=== PATIENT | male | born 1970 | race Caucasian/White ===

== ENCOUNTER 2022-02-10 10:48 | Outpatient (REF) | payer OTHER, SELFPAY ==
[2022-02-10 10:53] LABS: MANUAL DIFF FLAG NO
[2022-02-10 11:16] LABS: Basophils Absolute Auto 0.1 X10*3/uL (0.0-0.2); Basophils Percent Auto 0.6 % (0-2); Eosinophils Absolute Auto 0.4 X10*3/uL (0.0-0.4); Eosinophils Percent Auto 3.8 % (0-4); Hematocrit 43.9 % (42.0-52.0); Hemoglobin 14.1 g/dl (14.0-18.0); Imm Gran Abs Auto 0.02 X10*3/uL (0.00-0.03); Imm Gran Pct Auto 0.2 % (0.0-0.4); Lymphocytes Absolute Auto 4.3 X10*3/uL (1.2-4.9); Lymphocytes Percent Auto 45.4 % (20-40); Mean Corpuscular HGB Conc 32.1 g/dl (31.0-36.0); Mean Corpuscular Hemoglobin 29.7 pg (27.0-33.0); Mean Corpuscular Volume 92.4 fL (80.0-98.0); Mean Platelet Volume 10.2 fL (9.4-12.4); Monocytes Absolute Auto 0.8 X10*3/uL (0.1-1.2); Monocytes Percent Auto 7.9 % (2-11); Neutrophils Percent Auto 42.1 % (45-73); Platelet Count 247 X10*3/uL (160-400); Red Blood Count 4.75 X10*6/uL (4.60-5.80); White Blood Count 9.6 X10*3/uL (4.8-10.8)
[2022-02-10 11:23] LABS: Appearance Urine CLEAR; Color Urine YELLOW; Glucose Urine UA NEG (NEG); Leukocyte Esterase Urine NEG (NEG); Nitrite Urine NEG (NEG); PH 5.5 (5.0-8.0); Specific Gravity - Urine >= 1.030 (1.005-1.025); Urine Blood NEG (NEG); Urine Ketones 5 MG/DL (NEG); Urine Protein TRACE MG/DL (NEG-TRACE)
[2022-02-10 11:25] LABS: Estimated Average Glucose 169 mg/dL; Hemoglobin A1c % 7.5 %
[2022-02-10 11:29] LABS: Alanine Aminotransferase 56 U/L (0-40); Albumin Level 4.1 g/dL (3.5-5.0); Alkaline Phosphatase 110 U/L (39-117); Anion Gap 12 (12-20); Aspartate Amino Transferase 39 U/L (5-37); Bilirubin Total 0.3 mg/dL (0.0-1.0); Blood Urea Nitrogen 15 mg/dL (9-16); Carbon Dioxide 25 mmol/L (22-29); Chloride 107 mmol/L (96-108); Cholesterol 197 mg/dL; Estimated Glomerular Filt Rate > 60; Glucose Random 125 mg/dL (60-115); HDL Cholesterol 39 mg/dL; LDL Cholesterol Calculated 130 mg/dl; Potassium 4.6 mmol/L (3.3-5.1); Sodium 139 mmol/L (135-145); Total Protein 7.1 g/dL (6.5-8.0); Triglycerides 141 mg/dL
[2022-02-10 11:48] LABS: PSA,Total (Free>4and<10) 0.46 ng/mL (0.00-4.00)
[2022-02-10 11:51] LABS: Creatinine Urine 274.93 mg/dL; Microalbum/Creatinine Ratio Ur 10.9 ug/mg cr
== END 2022-02-10 10:49 | disposition home or self-care (01) ==
LOC: HO.LNP 10:48
PROVIDERS: Visit Provider Internal Medicine
DX: Z00.00 Encounter for general adult medical examination without abnormal findings (principal); Z12.5 Encounter for screening for malignant neoplasm of prostate; E11.9 Type 2 diabetes mellitus without complications; K50.10 Crohn's disease of large intestine without complications; E78.00 Pure hypercholesterolemia, unspecified
CPT/HCPCS: 80053; 80061; 81003; 82043; 83036; 84153; 85025

== ENCOUNTER 2022-04-21 10:57 | Outpatient (REF) | payer OTHER, SELFPAY ==
[2022-04-21 11:08] LABS: Basophils Absolute Auto 0.1 X10*3/uL (0.0-0.2); Basophils Percent Auto 0.5 % (0-2); Eosinophils Absolute Auto 0.2 X10*3/uL (0.0-0.4); Eosinophils Percent Auto 1.7 % (0-4); Hematocrit 42.6 % (42.0-52.0); Hemoglobin 13.4 g/dl (14.0-18.0); Imm Gran Abs Auto 0.03 X10*3/uL (0.00-0.03); Imm Gran Pct Auto 0.2 % (0.0-0.4); Lymphocytes Absolute Auto 6.5 X10*3/uL (1.2-4.9); MANUAL DIFF FLAG SCAN; Mean Corpuscular HGB Conc 31.5 g/dl (31.0-36.0); Mean Corpuscular Hemoglobin 28.9 pg (27.0-33.0); Mean Platelet Volume 10.4 fL (9.4-12.4); Monocytes Percent Auto 8.1 % (2-11); Neutrophils Absolute Auto 4.3 x10*3/uL (2.0-8.3); Neutrophils Percent Auto 35.5 % (45-73); Platelet Count 234 X10*3/uL (160-400); Red Blood Count 4.63 X10*6/uL (4.60-5.80); Red Cell Distribution Width 13.7 % (11.0-16.0); SCAN SMEAR FLAG 1; White Blood Count 12.1 X10*3/uL (4.8-10.8)
[2022-04-21 12:20] LABS: SLIDE REVIEW VERIFIED
== END 2022-04-21 10:58 | disposition home or self-care (01) ==
LOC: HO.LNP 10:57
PROVIDERS: PCP Internal Medicine; Visit Provider Internal Medicine
DX: D72.820 Lymphocytosis (symptomatic) (principal)
CPT/HCPCS: 85025

== ENCOUNTER 2022-09-15 11:04 | Outpatient (REF) | payer OTHER, SELFPAY ==
[2022-09-15 11:52] LABS: Estimated Average Glucose 128 mg/dL; Hemoglobin A1C 151.4008 umol/L; Hemoglobin A1c % 6.1 %
[2022-09-15 11:57] LABS: Alanine Aminotransferase 38 U/L (0-40); Albumin Level 4.2 g/dL (3.5-5.0); Alkaline Phosphatase 97 U/L (39-117); Aspartate Amino Transferase 29 U/L (5-37); Bilirubin Direct 0.2 mg/dL (0.0-0.5); Bilirubin Total 0.4 mg/dL (0.0-1.0); Cholesterol 193 mg/dL; Glucose Fasting 114 mg/dL (60-99); HDL Cholesterol 42 mg/dL; LDL Cholesterol Calculated 136 mg/dl; Total Protein 7.1 g/dL (6.5-8.0); Triglycerides 77 mg/dL
[2022-09-15 12:52] LABS: Reflex LDLD? No
== END 2022-09-15 11:05 | disposition home or self-care (01) ==
LOC: HO.LNP 11:04
PROVIDERS: Visit Provider Internal Medicine
DX: E11.9 Type 2 diabetes mellitus without complications (principal); E78.00 Pure hypercholesterolemia, unspecified
CPT/HCPCS: 80061; 80076; 82947; 83036

== ENCOUNTER 2023-02-17 11:38 | Outpatient (REF) | payer OTHER, SELFPAY ==
[2023-02-17 12:03] LABS: Basophils Absolute Auto 0.1 X10*3/uL (0.0-0.2); Basophils Percent Auto 0.6 % (0-2); Eosinophils Absolute Auto 0.3 X10*3/uL (0.0-0.4); Eosinophils Percent Auto 2.1 % (0-4); Hematocrit 45.7 % (42.0-52.0); Hemoglobin 15.2 g/dl (14.0-18.0); Imm Gran Abs Auto 0.05 X10*3/uL (0.00-0.03); Imm Gran Pct Auto 0.4 % (0.0-0.4); Lymphocytes Absolute Auto 5.8 X10*3/uL (1.2-4.9); Lymphocytes Percent Auto 44.5 % (20-40); MANUAL DIFF FLAG SCAN; Mean Corpuscular HGB Conc 33.3 g/dl (31.0-36.0); Mean Corpuscular Hemoglobin 29.7 pg (27.0-33.0); Mean Corpuscular Volume 89.4 fL (80.0-98.0); Mean Platelet Volume 10.5 fL (9.4-12.4); Monocytes Absolute Auto 0.9 X10*3/uL (0.1-1.2); Monocytes Percent Auto 6.8 % (2-11); Neutrophils Absolute Auto 5.9 x10*3/uL (2.0-8.3); Neutrophils Percent Auto 45.6 % (45-73); Platelet Count 231 X10*3/uL (160-400); Red Blood Count 5.11 X10*6/uL (4.60-5.80); Red Cell Distribution Width 12.4 % (11.0-16.0); SCAN SMEAR FLAG 1
[2023-02-17 12:14] LABS: Estimated Average Glucose 189 mg/dL; Hemoglobin A1c % 8.2 %
[2023-02-17 12:20] LABS: Appearance Urine Clear; Color Urine Yellow; Glucose Urine UA Negative (Negative); Leukocyte Esterase Urine Negative (Negative); Nitrite Urine Negative (Negative); PH 5.5 (5.0-9.0); Specific Gravity - Urine >= 1.030 (1.005-1.025); UMIC TRIGGER UACC YES; Urine Blood Negative (Negative); Urine Ketones Negative (Negative); Urine Protein 30 (1+) mg/dL (Neg-Trace)
[2023-02-17 12:24] LABS: Bacteria Urine None Seen (None Seen); Hyaline Casts Urine 0-2 /LPF (0-2); RBC Urine 0-2 /HPF (0-2); Squamous Epithelial Cell Urine 0-2 /HPF (0-2); WBC Urine 0-5 /HPF (0-5)
[2023-02-17 12:35] LABS: Alanine Aminotransferase 34 U/L (0-40); Albumin Level 4.3 g/dL (3.5-5.0); Alkaline Phosphatase 115 U/L (39-117); Anion Gap 12 (12-20); Aspartate Amino Transferase 20 U/L (5-37); Bilirubin Total 0.5 mg/dL (0.0-1.0); Blood Urea Nitrogen 17 mg/dL (9-16); Calcium 9.3 mg/dL (8.4-10.2); Carbon Dioxide 28 mmol/L (22-29); Chloride 102 mmol/L (96-108); Cholesterol 138 mg/dL; Creatinine Urine 247.64 mg/dL; Estimated Glomerular Filt Rate > 60; Glucose Random 171 mg/dL (60-115); HDL Cholesterol 44 mg/dL; LDL Cholesterol Calculated 80 mg/dl; Microalbum/Creatinine Ratio Ur 19.3 ug/mg cr; Potassium 4.1 mmol/L (3.3-5.1); Sodium 138 mmol/L (135-145); Total Protein 7.1 g/dL (6.5-8.0); Triglycerides 71 mg/dL
[2023-02-17 12:42] LABS: SLIDE REVIEW VERIFIED
== END 2023-02-17 11:39 | disposition home or self-care (01) ==
LOC: HO.LNP 11:38
PROVIDERS: Visit Provider Internal Medicine
DX: Z00.00 Encounter for general adult medical examination without abnormal findings (principal); E11.9 Type 2 diabetes mellitus without complications; E78.00 Pure hypercholesterolemia, unspecified; D72.820 Lymphocytosis (symptomatic)
CPT/HCPCS: 80053; 80061; 81001; 81003; 82043; 83036; 85025

== ENCOUNTER 2023-02-24 15:27 | Outpatient (REF) | payer OTHER, SELFPAY ==
[2023-02-24 16:44] LABS: PSA,Total (Free>4and<10) 0.47 ng/mL (0.00-4.00)
== END 2023-02-24 15:28 | disposition home or self-care (01) ==
LOC: HO.LNP 15:27
PROVIDERS: Visit Provider Internal Medicine
DX: Z12.5 Encounter for screening for malignant neoplasm of prostate (principal)
CPT/HCPCS: 84153

== ENCOUNTER 2024-02-23 10:49 | Outpatient (REF) | payer OTHER, SELFPAY ==
[2024-02-23 10:55] LABS: MANUAL DIFF FLAG NO
[2024-02-23 12:06] LABS: Basophils Absolute Auto 0.1 X10*3/uL (0.0-0.2); Basophils Percent Auto 0.9 % (0-2); Eosinophils Absolute Auto 0.3 X10*3/uL (0.0-0.4); Hematocrit 45.5 % (42.0-52.0); Hemoglobin 15.2 g/dl (14.0-18.0); Imm Gran Abs Auto 0.02 X10*3/uL (0.00-0.03); Imm Gran Pct Auto 0.2 % (0.0-0.4); Lymphocytes Absolute Auto 4.4 X10*3/uL (1.2-4.9); Lymphocytes Percent Auto 51.9 % (20-40); Mean Corpuscular HGB Conc 33.4 g/dl (31.0-36.0); Mean Corpuscular Volume 89.9 fL (80.0-98.0); Monocytes Absolute Auto 0.8 X10*3/uL (0.1-1.2); Monocytes Percent Auto 9.5 % (2-11); Neutrophils Absolute Auto 2.9 x10*3/uL (2.0-8.3); Neutrophils Percent Auto 33.5 % (45-73); Platelet Count 227 X10*3/uL (160-400); Red Blood Count 5.06 X10*6/uL (4.60-5.80); Red Cell Distribution Width 13.2 % (11.0-16.0); White Blood Count 8.5 X10*3/uL (4.8-10.8)
[2024-02-23 12:08] LABS: Appearance Urine Clear; Color Urine Dark Yellow; Glucose Urine UA Negative (Negative); Leukocyte Esterase Urine Negative (Negative); Nitrite Urine Negative (Negative); PH 5.5 (5.0-9.0); Specific Gravity - Urine >= 1.030 (1.005-1.025); Urine Blood Negative (Negative); Urine Ketones Trace mg/dL (Negative); Urine Protein Trace mg/dL (Neg-Trace)
[2024-02-23 12:12] LABS: Bacteria Urine None Seen (None Seen); Hyaline Casts Urine 0-2 /LPF (0-2); RBC Urine 0-2 /HPF (0-2); Squamous Epithelial Cell Urine 0-2 /HPF (0-2); WBC Urine 0-5 /HPF (0-5)
[2024-02-23 12:26] LABS: Estimated Average Glucose 177 mg/dL; Hemoglobin A1c % 7.8 % (<6.0)
[2024-02-23 12:37] LABS: Alanine Aminotransferase 53 U/L (0-40); Albumin Level 4.5 g/dL (3.5-5.0); Alkaline Phosphatase 100 U/L (39-117); Anion Gap 15 (12-20); Aspartate Amino Transferase 44 U/L (5-37); Bilirubin Total 0.8 mg/dL (0.0-1.0); Blood Urea Nitrogen 23 mg/dL (9-16); Calcium 9.4 mg/dL (8.4-10.2); Carbon Dioxide 25 mmol/L (22-29); Chloride 103 mmol/L (96-108); Cholesterol 199 mg/dL (<200); Estimated Glomerular Filt Rate > 60; Glucose Fasting 166 mg/dL (60-99); HDL Cholesterol 52 mg/dL (>40); LDL Cholesterol Calculated 131 mg/dL (<100); Potassium 4.1 mmol/L (3.3-5.1); Sodium 139 mmol/L (135-145); Total Protein 7.8 g/dL (6.5-8.0); Triglycerides 83 mg/dL (<150)
[2024-02-23 12:44] LABS: PSA,Total (Free>4and<10) 0.45 ng/mL (0.00-4.00)
[2024-02-23 12:46] LABS: Creatinine Urine 274.14 mg/dL
== END 2024-02-23 10:50 | disposition home or self-care (01) ==
LOC: HO.LNP 10:49
PROVIDERS: Visit Provider Internal Medicine
DX: Z00.00 Encounter for general adult medical examination without abnormal findings (principal); Z12.5 Encounter for screening for malignant neoplasm of prostate; E11.9 Type 2 diabetes mellitus without complications; E78.00 Pure hypercholesterolemia, unspecified; D72.820 Lymphocytosis (symptomatic)
CPT/HCPCS: 80053; 80061; 81001; 82043; 82570; 83036; 84153; 85025

== ENCOUNTER 2025-11-14 07:15 | Outpatient (REF) | payer OTHER, SELFPAY ==
--- OUTSIDE RECORDS SUMMARY | 2024-10-18 04:00 | XMS_ITS ---
Author Organization Ankit Rose MD Address [address] [place] [phone] Care Team Providers Care Educational Program Assistant Name Role Phone Ankit Rose Primary Care Provider Allergies Allergen (clinical drug ingredient) Drug/Non Drug Allergy documented on EMR Reaction Allergy Type Onset Date Status penicillin G Penicillin G Potassium hives Drug Allergy Active metformin Metformin HCl diarrhea Drug Allergy Act yasir Results Component Value Reference Range Notes Hemoglobin A1c Reviewed date:10/18/2024 09:05:51 AM Interpretation: Performing Lab: Notes/Report: Hemoglobin A1c 7.9 Glucose, finger stick Reviewed date:10/18/2024 09:01:26 AM Interpretation: Performing Lab: Notes/Report: Value 190 REASON FOR VISIT 6 month Medications Medication SIG (Take, Route, Frequency, Duration) Notes Start Date End Date Status sulfaSALAzine 500 MG 2 tablet Orally twi ce a day Not-Taking Mounjaro 2.5 MG/0.5ML as directed Subcutaneous Active glipiZIDE 5 MG 1 tablet 30 minutes before breakfast Orally Once a day Active Crestor 20 MG 1 tablet Orally Once a day Active OneTouch Ultra Test 0 as directed In Vit ro dx E11.9 used to test blood sugars 4 times a day for 30 days 09/25/2015 Active Immunizations Vaccine Route Administration Date Status Comme nts Fluarix Quadrivalent - 150 IM Intramuscular 10/18/2024 Adm inistered Vital Signs Blood pressure systolic 118 mm Hg 10/18/20 24 Blood pressure diastolic 66 mm Hg 024 Height 65.5 in 10/18/2024 Weight 198 lbs 10/18/2024 BMI 32.44 kg/m2 10/18/2024 Encounters Encounter Location Date Provider Diagnosis Ankit Rose MD [address] [place], [place] [phone] 10/18/2024 Ankit Rose Type 2 diabetes mellitus without complication E11.9 ; Solar lentigo L81.4 ; Crohns disease of large intestine without complication K50.10 and Encounter for immunization Z23 Assessments Encounter Date Diagnosis (ICD Code) Assessment Notes Treatment Notes Treatment Clinical Notes Section Notes 10/18/2024 Type 2 diabetes mellitus without complication (ICD-10 - E11.9) 10/18/2024 Solar lentigo (ICD-10 - L81.4) 10/18/2024 Crohns disease of large intestine without complication (ICD-10 - K50.10) has been doing well followed by gi. probably the cause of his intermittant arthralgia 10/18/2024 Encounter for immunization (ICD-10 - Z23) Plan Of Treatment Medication Medication Name Sig Start Date Stop Date Notes Mounjaro 2.5 MG/0.5ML as directed Subcutaneous glipiZIDE 5 MG 1 tablet 30 minutes before breakfast Orally Once a day Treatment Notes Assessment Notes Crohns disease of large inte ronna without complication has been doing well followed by gi. probably the cause of his intermittant arthralgia Next Appt Details Provider Name:Ankit Long ier, 11/30/2025 08:30:00 AM, [address], [address], [place], [place], [phone], Progress Notes * HUSSEIN SALMERON IIIDOB:0 1970 (54 yo M)Acc No.[id number]:10/18/2024 Progress Notes Patient: HUSSEIN CONDON III Provider: Maine Rose MD :1970 A ge:54 Y S ex:Male Date:10/18/2024 Address:[address] [place], [place] [phone] Subjective: * Chief Complaints: * 6 month * HPI: S ymptom(s): patient is a 54 yo male here for 6 month follow up visit, has been doing well/ wonders about skin lesion. * ROS: G eneral/Constitutional: Denies C hills. D enies F atigue. D enies F ever. D enies H eadache. E NT: Patient denies d ecreased sense of smell , any loss of taste , sore throat. D enies S ore throat. E ndocrine: Denies D ifficulty sleeping. D enies D izziness.?Denies E xcessive sweating. D enies E xcessive thirst. D enies F requent urination. R espiratory: Denies C ough. D enies S hortness of breath at rest. D enies S hortness of breath with exertion. G astrointestinal: Denies D iarrhea. D enies N ausea. M usculoskeletal: Patient denies m uscle aches. P eripheral Vascular: Patient denies r ed and blue toes. * Medical History: * Surgical History: * Hospitalization/Major Diagno stic Procedure: * Medications: T akingglipiZIDE 5 MG Tablet 1 tablet 30 minutes before breakfast Orally Once a dayMounjaro 2.5 MG/0.5ML Solution Pen-injector as directed Subcutaneous OneTouch Ultra Test 0 Strip as directed In Vitro dx E11.9 used to test blood sugars 4 times a dayCrestor 20 MG Tablet 1 tablet Orally Once a dayTaking glipiZIDE 5 MG Tablet 1 tablet 30 minutes before breakfast Orally Once a dayTaking Mounjaro 2.5 MG/0.5ML Solution Pen-injector as directed Subcutaneous Taking OneTouch Ultra Test 0 Strip as directed In Vitro dx E11.9 used to test blood sugars 4 times a dayTaking Crestor 20 MG Tablet 1 tablet Orally Once a dayNot-Taking/PRNsulfaSALAzine 500 MG Tablet 2 tablet Orally twice a dayMedication List reviewed and reconciled with the patientNot-Taking/PRN sulfaSALAzine 500 MG Tablet 2 tablet Orally twice a dayMedication List reviewed and reconciled with the patient * Allergies: P enicillin G Potassium: hives - Side EffectsMetformin HCl: diarrhea - Side Effectsyes[Allergies Verified] Objective: * Vitals: H t: 65.5, Wt:198, BMI:32.44, BP:118/66. * Examination: G eneral Examination: GENERAL APPEARANCE: a lert, well hydrated, in no distress.? HEAD: n ormocephalic. SKIN: g ood turgor. HEART: n o murmurs, rubs, gallops , regular rate and rhythm. LUNGS: n o wheezes, rales, rhonchi , good air movement , clear to auscultation bilaterally. Assessment: * Assessment: 1. T ype 2 diabetes mellitus without complication - E11.9 (Primary) 2 . S olar lentigo - L81.4 3 . C rohns disease of large intestine without complication - K50.10 4 . E ncounter for immunization - Z23 Plan: * Treatment: Value Reference Range H emoglobin A1c 7.9 Genny Campos 4 09:05:50 AM EST > ?LAB: Glucose, finger stick* Value Reference Range V alue 190 Genny Campos 4 09:01:24 AM EST > 2.?Crohns disease of large intestine without complication? Notes: has been doing well followed by gi. probably the cause of his intermittant arthralgia? * Immunizations: Fluarix Quadrivalent - 150 : 0.5 mL (Dose No:1) (Route: Intramuscular) given by Genny Bonilla on Left Deltoid * Procedure Codes: 8 2947 ASSAY, GLUCOSE, BLOOD QUANT, Modifiers: QW 13317 GLYCATED HEMOGLOBIN TEST, Modifiers: QW 52489 FLU VACCINE NO PRESERV 3 & >00943 IMMUNIZATION ADMIN * * Sign off status: Completed true * Provider: Maine Rose MD Date: 12/19/2023 Generated for Reece krishnamurthy/Emy/Immanuel on: 02:54 PM EST History and Physical Notes * HPI (History of Present Illness) Category Sub-Category Detail Notes Category Not es Symptom(s) patient is a 54 yo male here for 6 month follow up visit, has been doing well/ wonders about skin lesion Examination Category Sub-Category Detail Notes Category Not es General Examination GENERAL APPEARANCE: alert, w ell hydrated, in no distress HEAD: normocephalic HEART: no murmurs, rubs, ga llops , regular rate and rhythm LUNGS: no wheezes, rales, r honchi , good air movement , clear to auscultation bilaterally SKIN: good turgor
--- OUTSIDE RECORDS SUMMARY | 2025-04-27 04:14 | XMS_ITS ---
Author Organization Ankit Rose MD Address [address] [place] [phone] Care Team Providers Care Kilnman Name Role Phone Ankit Rose Primary Care Provider [phone] REASON FOR VISIT ? to Cancel annual appt Encounters Encounter Location Date Provider Diagnosis Ankit Rose MD [address] [facility] [address] [place], [place] [phone] 04/27/2025 Ankit Rose Plan Of Treatment Next Appt Details Provider Name:Ankit pendleton, 11/30/2025 08:30:00 AM, [address], [address], [place], [place], [phone], Progress Notes * HUSSEIN SALMERON IIIDOB:0 1970 (55 yo M)Acc No.[id number]:04/27/2025 Patient: Mesha HUSSEIN MOISE III :1970 A ge:55 Y S ex:Male Address:[address] [place] [address], [phone] * true * Date: Generated for Reece krishnamurthy/Emy/Tashasmitting on: 02:53 PM EST
--- OUTSIDE RECORDS SUMMARY | 2025-11-14 04:30 | XMS_ITS ---
Author Organization Ankit Rose MD Address [address] [place] [phone] Care Team Providers Care Trend Investigator Name Role Phone Ankit Rose Primary Care Provider [phone] REASON FOR VISIT yearly fasting labs Encounters Encounter Location Date Provider Diagnosis Ankit Rose MD [address] [place] [phone] 11/14/2025 Ankit Rose Blood tests for rout ine general physical examination Z00.00 ; Type 2 diabetes mellitus without complication E11.9 ; Pure hypercholesterolemia E78.00 and Lymphocytosis D72.820 Assessments Encounter Date Diagnosis (ICD Code) Assessment Notes Treatment Notes Treatment Clinical Notes Section Notes 11/14/2025 Blood tests for rout ine general physical examination (ICD-10 - Z00.00) 11/14/2025 Type 2 diabetes davina itus without complication (ICD-10 - E11.9) 11/14/2025 Pure hypercholesterolemia (ICD-10 - E78.00) 11/14/2025 Lymphocytosis (ICD-1 0 - D72.820) Plan Of Treatment Pending Test Test Name Order Date Complete Blood Count Auto Diff Comprehensive Morgan. Panel Fast Lipid Panel 11/14/2025 PSA,Total (Free>4and<10) 11/14/2025 Microalbumin, Random 11/14/2025 Hemoglobin A1c 11/14/2025 UA ClnCatch+Micro w/rflx Cult 11/14/2025 Next Appt Details Provider Name:Ankit pendleton, 11/30/2025 08:30:00 AM, [address] [facility], [address], [place], [phone], Progress Notes * DORITADERICBROCK REYESHUSSEINDOB:0 1970 (55 yo M)Acc No.[id number]:11/14/2025 Progress Note Patient: HUSSEIN CONDON III Provider: Maine Rose MD :1970 A ge:55 Y S ex:Male Date:11/14/2025 Address:[address] [place] [address] Subjective: * Chief Complaints: * 1 . Yearly fasting labs. * Medical History: Objective: * Vitals: Assessment: * Assessment: 1. B lood tests for routine general physical examination - Z00.00 (Primary) 2 .?Type 2 diabetes mellitus without complication - E11.9 3 . P ure hypercholesterolemia - E78.00 4 . L ymphocytosis - D72.820 Plan: * Treatment: 2. T ype 2 diabetes mellitus without complication L AB: Complete Blood Count Auto Diff L AB: Comprehensive Morgan. Panel Fast L AB: Lipid Panel L AB: PSA,Total (Free>4and<10) L AB: Microalbumin, Random L AB: Hemoglobin A1c L AB: UA ClnCatch+Micro w/rflx Cult 3. P ure hypercholesterolemia L AB: Complete Blood Count Auto Diff L AB: Comprehensive Morgan. Panel Fast L AB: Lipid Panel L AB: PSA,Total (Free>4and<10) L AB: Microalbumin, Random L AB: Hemoglobin A1c L AB: UA ClnCatch+Micro w/rflx Cult 4. L ymphocytosis L AB: Complete Blood Count Auto Diff L AB: Comprehensive Morgan. Panel Fast L AB: Lipid Panel L AB: PSA,Total (Free>4and<10) L AB: Microalbumin, Random L AB: Hemoglobin A1c L AB: UA ClnCatch+Micro w/rflx Cult * Procedure Codes: 3 6415 VENIPUNCT, ROUTINE* * * The named appointment provid er may or may not be the originator of this progress note, and it is not deemed complete until electronically signed by the appointment provider. Sign off status: Pending * Provider: Maine Rose MD Date: Generated for Reece krishnamurthy/Emy/Karelyitting on: 02:54 PM EST
[2025-11-14 11:01] LABS: MANUAL DIFF FLAG NO
[2025-11-14 11:13] LABS: Hematocrit 45.4 % (42.0-52.0); Hemoglobin 14.8 g/dl (14.0-18.0); Imm Gran Abs Auto 0.03 X10*3/uL (0.00-0.03); Imm Gran Pct Auto 0.3 % (0.0-0.4); Lymphocytes Absolute Auto 3.1 X10*3/uL (1.2-4.9); Mean Corpuscular HGB Conc 32.6 g/dl (31.0-36.0); Mean Corpuscular Hemoglobin 29.5 pg (27.0-33.0); Mean Corpuscular Volume 90.4 fL (80.0-98.0); NRBC Abs Auto 0.000 X10*3/uL (0.0-0.012); NRBC Pct Auto 0.0 /100WBC (0.0-0.2); Platelet Count 224 X10*3/uL (160-400); Red Blood Count 5.02 X10*6/uL (4.60-5.80); White Blood Count 9.7 X10*3/uL (4.8-10.8)
[2025-11-14 11:35] LABS: Appearance Urine Clear; Glucose Urine UA Negative (Negative); PH 5.0 (5.0-9.0); Specific Gravity - Urine >= 1.030 (1.005-1.025)
[2025-11-14 11:51] LABS: Microalbum/Creatinine Ratio Ur 9.4 ug/mg cr (<30)
[2025-11-14 12:09] LABS: PSA,Total (Free>4and<10) 0.58 ng/mL (0.00-4.00)
[2025-11-14 12:17] LABS: Alanine Aminotransferase 43 U/L (0-40); Albumin Level 4.5 g/dL (3.5-5.0); Alkaline Phosphatase 101 U/L (39-117); Anion Gap 12 (12-20); Aspartate Amino Transferase 41 U/L (5-37); Blood Urea Nitrogen 16 mg/dL (9-16); Calcium 9.3 mg/dL (8.4-10.2); Carbon Dioxide 26 mmol/L (22-29); Chloride 106 mmol/L (96-108); Cholesterol 165 mg/dL (<200); Estimated Glomerular Filt Rate > 60; HDL Cholesterol 43 mg/dL (>40); Potassium 4.1 mmol/L (3.3-5.1); Sodium 140 mmol/L (135-145); Total Protein 7.5 g/dL (6.5-8.0); Triglycerides 144 mg/dL (<150)
--- OUTSIDE RECORDS SUMMARY | 2025-11-14 14:53 | XMS_ITS | Encounter Summary ---
Author Organization [facility] Address [address] [place] [phone] Phone Care Team Providers Care Assistant Women'S Rowing Coach Name Role Phone Ankit Rose MD Primary Care Provider Reza Ye MD Unavailable [phone] Encounter Details Date Type Department Care Team (Late Contact Info) Description 07/27/2017 Telephone [facility]rology [facility] [address] [place] [address] Joe Sears Social History Tobacco Use Types Packs/Day Years Used Date Smoking Tobacco: Never Sex and Gender Information Value Date Recorded Sex Assigned at Male 10/22/2021 6:08 PM EST Legal Sex Male 1:08 PM EST Gender Identity Male 10/22/2021 6:08 PM EST Sexual Orientation Straight 10/22/2021 6: 08 PM EST documented as of this encounter Plan of Treatment Upcoming Encounters Date Type Department Care Team (Late Contact Info) Description 12/28/2025 2:40 PM EST Office Visit [facility] Endocrine Diabetes Clinic [address] [place] [address] Kristin Hernández MD [address] [place] [address] [email or web address] 02/23/2026 Procedure Pass [facility] Endoscopy Admitting Dept Virtual Department [address] [place] [address] 02/23/2026 10:00 AM EDT Hospital Encounter [facility] Admitting [facility] Virtual Department [address] [place] [address] Reza Ye MD [address] [address] 02/23/2026 10:00 AM EDT - 02/23/2026 10:30 AM EDT Surgery [facility] Endoscopy Admitting Dept Virtual Department [address] [place] [address] Reza Ye MD [address] [place] [address] COLONOSCOPY 10/31/2026 11:20 AM EST Office [facility] [address] [place] [address] Richa East MD, PhD [address] [place] [address] [facility], [place] [address] [email or web address] Scheduled Procedures Name Priority Associated Diagnoses Date/Ti me COLONOSCOPY Crohn's disease of both small and large intestine without complication 02/23/2026 10:00 AM EDT documented as of this encounter Visit Diagnoses Not on filedocumented in this encounter Care Teams Assistant Women'S Rowing Coach Relationship Specialty Start Date End Date Ankit Rose MD [address] [place] [address] PCP - General Internal Medicine 10/13/16 Reza Ye MD [address] [place] [address] Gastroenterology 11/11/19 documented as of this encounter Additional Source Comments The information contained in this document represents components of the legal health record. It is not the complete legal health record.[facility]
--- OUTSIDE RECORDS SUMMARY | 2025-11-14 14:53 | XMS_ITS | Encounter Summary ---
Author Organization [facility] Address [address] [place] [address] Phone Care Team Providers Care Electrician Deck Name Role Phone Ankit Rose MD Primary Care Provider Reza Ye MD Unavailable Encounter Details Date Type Department Care Team (Late st Contact Info) Description 11/03/2016 Ancillary Orders [facility] [address] [place] [address] Richa East MD, PhD [address] [place] [address] [facility] [place], [place] [address] [email or web address] Foreign body in eye, unspecified laterality, initial encounter Social History Tobacco Use Types Packs/Day Years [...] Encounters Date Type Department Care Team (Late st Contact Info) Description 12/28/2025 2:40 PM EST Office Visit [facility] [address] [place] [address] Kristin Hernández MD [address] [place] [address] [email or web address] 02/23/2026 Procedure Pass [facility] Endoscopy Admitting Dept Virtual Department [address] [place] [address] 02/23/2026 10:00 AM EDT Hospital Encounter [facility] Admitting [facility] Virtual Department [address] [place] [address] Reza Ye MD [address] [address] 02/23/2026 10:00 AM EDT - 02/23/2026 10:30 AM EDT Surgery [facility] Endoscopy Admitting Dept Virtual Department [address] [place] [address] Reza Ye MD [address] [place] [address] COLONOSCOPY 10/31/2026 11:20 AM EST Office [facility] [address] [place] [address] Richa East MD, PhD [address] [place] [address] [facility] [place], [place] [address] [email or web address] Scheduled Procedures Name Priority Associated Diagnoses Date/Ti vt COLONOSCOPY Crohn's disease of both small and large intestine without complication 02/23/2026 10:00 AM EDT documented as of this encounter Results * XR Orbits Series (11/05/2016 11:05 AM EST) Anatomical Region Laterality Modality Face Computed Radiogr aphy 11/05/2016 11:0 5 AM EST Impressions 11/05/2016 12:24 PM EST Rule out foreign body. TECHNIQUE: Frontal and lateral radiographs of the orbit. COMPARISON: None. FINDINGS: No radiodense foreign body in the region of the orbits. Radiodense dental amalgam seen in the oral cavity. IMPRESSION: No radiodense foreign body in the region of the orbits. Narrative Procedure Note Gretta Bosch MD - 11/05/2016 IMPRESSION: Rule out foreign body. TECHNIQUE: Frontal and lateral radiographs of the orbit. COMPARISON: None. FINDINGS: No radiodense foreign body in the region of the orbits. Radiodense dental amalgam seen in the oral cavity. IMPRESSION: No radiodense foreign body in the region of the orbits. us Richa East MD, PhD IMG XR HEAD AND SHUNT SER IES Final Result documented in this encounter Visit Diagnoses Diagnosis Foreign body in eye, unspecified laterality, initial encounter Foreign body in eye, unspecified laterality, initial encounter Crohn's disease of both small and large intestine without complication documented in this encounter Care Teams Electrician Deck Relationship Specialty Start Date End Date Ankit Rose MD [address] [place] [address] [address] [place] [address] PCP - General Internal Medicine 10/13/16 Reza Ye MD [address] [place] [address] [email or web address] Gastroenterology 11/11/19 documented as of this encounter Additional Source Comments The information contained in this document represents components of the legal health record. It is not the complete legal health record.[facility]
--- OUTSIDE RECORDS SUMMARY | 2025-11-14 14:53 | XMS_ITS | Encounter Summary ---
Author Organization [facility] Address [address] [place] [address] Phone Care Team Providers Care Blower Insulator Name Role Phone Ankit Rose MD Primary Care Provider Reza Ye MD Unavailable [phone] Encounter Details Date Type Department Care Team (Late Contact Info) Description 03/14/2022 Procedure Pass [facility] Endoscopy Admitting Dept Virtual Department [address] [place], [place] [phone] Social History Tobacco Use Types Packs/Day Years Used Date Smoking Tobacco: Never Smokeless Tobacco: Never Alcohol Use Standard Drinks/Week Comments No 0 (1 standard drink = 0.6 oz pur e alcohol) Sex and Gender Information Value Date Recorded Sex Assigned at Male 10/22/2021 6:08 PM EST Legal Sex Male 1:08 PM EST Gender Identity Male 10/22/2021 6:08 PM EST Sexual Orientation Straight 10/22/2021 6: 08 PM EST documented as of this encounter Plan of Treatment Upcoming Encounters Date Type Department Care Team (Late Contact Info) Description 12/28/2025 2:40 PM EST Office [facility] [address] [place] [address] Kristin Hernández MD [address] [place] [address] [email or web address] 02/23/2026 Procedure Pass [facility] Endoscopy Admitting Dept Virtual Department [address] [place] [address] 02/23/2026 10:00 AM EDT Hospital Encounter [facility]oscopy Admitting Dept Virtual Department [address] [place] [address] Reza Ye MD [address] [address] 02/23/2026 10:00 AM EDT - 02/23/2026 10:30 AM EDT Surgery [facility] Endoscopy Admitting Dept Virtual Department [address] [place] [address] Reza Ye MD [address] [place] [address] [email or web address] COLONOSCOPY 10/31/2026 11:20 AM EST Office [facility] [address] [place] [address] Richa East MD, PhD [address] [place] [address] [facility], [place] [address] [email or web address] Scheduled Procedures Name Priority Associated Diagnoses Date/Ti me COLONOSCOPY Crohn's disease of both small and large intestine without complication 02/23/2026 10:00 AM EDT documented as of this encounter Visit Diagnoses Not on filedocumented in this encounter Additional Health Concerns Assessment Noted Time PHQ-2 Depression Total Score: 0 07/25/20 20 10:41 AM EDT documented as of this encounter Care Teams Blower Insulator Relationship Specialty Start Date End Date Ankit Rose MD [address] [place] [address] PCP - General Internal Medicine 10/13/16 Reza Ye MD [address] [place] [address] [email or web address] Gastroenterology 11/11/19 documented as of this encounter Additional Source Comments The information contained in this document represents components of the legal health record. It is not the complete legal health record.[facility]
--- OUTSIDE RECORDS SUMMARY | 2025-11-14 14:53 | XMS_ITS | Clinical Summary ---
Author Organization [facility] Address [address] [place] [address] Care Team Providers Care Beam Worker Name Role Phone Ankit Rose MD Primary Care Provider [phone] Allergies Active Allergy Reactions Criticality Noted Date Comments Penicillins Unknown/Patient and Family Unable to Define Medium 07/18/2025 Active Problems Problem Noted Date Diagnosed Date Diabetes mellitus Overview (07/18/2025): Type 2 Immunizations Immunization Administration Dates Next Due Tdap 07/18/2025 Social History Tobacco Use Types Packs/Day Years Used Date Smoking Tobacco: Never Assessed Sex and Gender Information Value Date Recorded Sex Assigned at Male 07/18/2025 5:24 PM EDT Legal Sex Male 7:51 PM EST Gender Identity Male 07/18/2025 5:24 PM EDT Sexual Orientation Heterosexual (straight) 07/18 5:24 PM EDT Last Filed Vital Signs Vital Sign Reading Time Taken Comments Blood Pressure 170/89 07/18/2025 5:15 PM EDT Pulse 84 07/18/2025 5:15 PM EDT Temperature 36.8 C (98.2 F) 07/18/2025 5:15 PM EDT Respiratory Rate 18 07/18/2025 5:15 PM EDT Oxygen Saturation 99% 07/18/2025 5:15 PM EDT Inhaled Oxygen Concentration - - Weight - - Height - - Body Mass Index - - Plan of Treatment Health Maintenance Due Date Last Done Comments Hepatitis C Virus Screening 1968 Creatinine with GFR 1978 Foot Exam 1978 Lipid Panel 1978 Ophthalmology Exam 1978 HIV Screening 1981 Hepatitis B Vaccines (1 of 3 - 19+ 3-dose series) 1987 Pneumococcal Vaccines 50+ (1 of 2 - PCV) 1987 Colonoscopy 2013 Zoster (Shingles) Vaccine (1 of 2) 2018 Influenza Vaccine 06/16/2025 COVID-19 Vaccine (1 - 2024-2 6 season) 2025 Hemoglobin A1C 11/02/2025 05/03/2025, 11/17, 05/25/2024, Additional history exists Microalbumin/Creatinine Rati o Urine 11/02/2025 11/02/2024, 08/19/2023, 08/19/2022, Additional history exists DTaP/Tdap/Td Vaccines (2 - T d or Tdap) 07/18/2035 07/18/2025 RSV Vaccine 50 years and old er and Patients (1 - 1-dose 75+ series) 2043 [place] [id number] Care Teams Beam Worker Relationship Specialty Start Date End Date Ankit Rose MD [address] [place] [address] [place] [address] PCP - General Internal Medicine 07/18/25
--- OUTSIDE RECORDS SUMMARY | 2025-11-14 14:53 | XMS_ITS | Encounter Summary ---
Author Organization [facility] Address [address] [place] [address] Phone Care Team Providers Care Office Administration Instructor Name Role Phone Ankit Rose MD Primary Care Provider Reza Ye MD Unavailable [phone] Encounter Details Date Type Department Care Team (Late Contact Info) Description 07/30/2018 Procedure Pass [facility] Endoscopy Admitting Dept Virtual Department [address] [place], [place] [phone] Social History Tobacco Use Types Packs/Day Years [...] Visit [facility] [address] [place] [address] Kristin Hernández MD [address] [place] [address] [email or web address] 02/23/2026 Procedure Pass [facility] Endoscopy Admitting Dept Virtual Department 30 [place] [address] 02/23/2026 10:00 AM EDT Hospital Encounter [facility] Endoscopy Admitting Dept Virtual Department 30 [place] [address] Reza Ye MD [address] [address] 02/23/2026 10:00 AM EDT - 02/23/2026 10:30 AM EDT Surgery [facility] Endoscopy Admitting Dept Virtual Department 30 [place] [address] Reza Ye MD [address] [place] [address] [email or web address] COLONOSCOPY 10/31/2026 11:20 AM EST Office [facility] [address] [place] [address] Richa East MD, PhD [address] [place] [address] Arthritis & Rheumatic Diseases [facility], [place] [address] [email or web address] Scheduled Procedures Name Priority Associated Diagnoses Date/Ti me COLONOSCOPY Crohn's disease of both small and large intestine without complication 02/23/2026 10:00 AM EDT documented as of this encounter Visit Diagnoses Not on filedocumented in this encounter Care Teams Office Administration Instructor Relationship Specialty Start Date End Date Ankit Rose MD [address] [place] [address] Dr LEACH [facility] [place] [address] PCP - General Internal Medicine 10/13/16 Reza Ye MD [address] [place] [phone] [email or web address] Gastroenterology 11/11/19 documented as of this encounter Additional Source Comments The information contained in this document represents components of the legal health record. It is not the complete legal health record.[facility]
--- OUTSIDE RECORDS SUMMARY | 2025-11-14 14:53 | XMS_ITS | Clinical Summary ---
Author Organization [facility] Address [address] [place] [address] Care Team Providers Care Billboard Installer Name Role Phone Satinder Jiang MD Primary Care Provider [phone] Medications Semaglutide (Ozempic, 1 MG/DOSE,) 4 MG/3ML prefilled pen INJECT 1 MG UNDER THE SKIN EVERY 7 DAYS. OK TO DOWN TITRATE FOR TOLERABILITY. 9 0 04/23/2022 Active Doxycycline Hyclate (VIBRAMYCIN) 100 MG capsule 20 0 11/14/2022 Active Rosuvastatin Calcium (CRESTOR) 20 MG tablet 90 0 01/26/2023 Active FLUTICASONE PROPIONATE, NASAL, (FT Allergy Relief 24 HR) 50 MCG/ACT nasal spray 48 0 01/29/2023 Active Azithromycin (ZITHROMAX) 250 MG tablet TAKE DIRECTED 12 0 02/04/2023 Active methylPREDNISol one (MEDROL DOSPAK) 4 MG tablet 42 0 02/04/2023 Active Active Problems Problem Noted Date Diagnosed Date Acquired hearing loss 06/02/2017 Social History Tobacco Use Types Packs/Day Years Used Date Smoking Tobacco: Never Assessed Sex and Gender Information Value Date Recorded Sex Assigned at Not on file Legal Sex Male 10:42 PM EDT Gender Identity Not on file Sexual Orientation Not on file Plan of Treatment Health Maintenance Due Date Last Done Comments Hepatitis C Screening 1970 MMR (Born 1958-) 1968 DTaP/Tdap/Td (1 - Tdap) 1986 Hep B (1 of 3 - 19+ 3-dose series) 1987 Pneumococcal 50+ years (1 of 1 - PCV) 2018 Zoster (Shingrix) (1 of 2) 2018 COVID-19 Vaccine ( - 2024-2 6 season) 2025 Influenza (#1) 2025 RSV (1 - 1-dose 75+ series) 2043 HPV Vaccine (No Doses Required) Completed Hep A Aged Out No longer eligi ble based on patient's age to complete this topic Hib Aged Out No longer eligi ble based on patient's age to complete this topic Meningococcal ACWY Aged Out No longer eligible based on patient's age to complete this topic Care Teams Billboard Installer Relationship Specialty Start Date End Date Satinder Jiang MD [address] [facility] [address] [place] [address] PCP - General 06/22/23
--- OUTSIDE RECORDS SUMMARY | 2025-11-14 14:53 | XMS_ITS | Encounter Summary ---
Author Organization [facility] Address [address] [place] [address] Phone Care Team Providers Care Dial Equipment Engineer Name Role Phone Ankit Rose MD Primary Care Provider Reza Ye MD Unavailable [phone] Encounter Details Date Type Department Care Team (Late st Contact Info) Description 12/11/2016 Procedure Pass [address] [address] Social History Tobacco Use Types Packs/Day Years [...] Description 12/28/2025 2:40 PM EST Office Visit [facility] [address] [place] [address] Kristin Hernández MD [address] [place] [address] [email or web address] 02/23/2026 Procedure Pass [facility] Endoscopy Admitting Dept Virtual Department 30 [place] [address] 02/23/2026 10:00 AM EDT Hospital Encounter [facility] Endoscopy Admitting Dept Virtual Department 30 [place] [address] Reza Ye MD [address] [address] 02/23/2026 10:00 AM EDT - 02/23/2026 10:30 AM EDT Surgery [facility] Endoscopy Admitting Dept Virtual Department [address] [place] [address] Reza Ye MD [address] [place] [address] [email or web address] COLONOSCOPY 10/31/2026 11:20 AM EST Office [facility] [address] [place] [address] Richa East MD, PhD [address] [place] [address] Arthritis & Rheumatic Diseases [facility], [place] [address] [email or web address] Scheduled Procedures Name Priority Associated Diagnoses Date/Ti me COLONOSCOPY Crohn's disease of both small and large intestine without complication 02/23/2026 10:00 AM EDT documented as of this encounter Visit Diagnoses Not on filedocumented in this encounter Care Teams Dial Equipment Engineer Relationship Specialty Start Date End Date Ankit Rose MD [address] [place] [address] PCP - General Internal Medicine 10/13/16 Reza Ye MD [address] [place] [address] Gastroenterology 11/11/19 documented as of this encounter Additional Source Comments The information contained in this document represents components of the legal health record. It is not the complete legal health record.[facility]
--- OUTSIDE RECORDS SUMMARY | 2025-11-14 14:54 | XMS_ITS | Clinical Summary ---
Author Organization [facility] Address [address] [place] [address] Phone Care Team Providers Care Baker Chef Name Role Phone Ankit Rose MD Primary Care Provider Reza Ye MD Unavailable [phone] Allergies Active Allergy Reactions Criticality Noted Date Comments Cat Hair Standardized Allergenic Extract Anaphylaxis High 07/09/2017 Metformin Hcl 02/24/2023 Other reaction(s): diarrhea Penicillin G Potassium 02/24/2023 Other reaction(s): hives Penicillins Hives 10/22/2016 [place] 10/22/2016 Medications rosuvastatin (CRESTOR) 20 MG tablet TAKE 1 TABLET BY MOUTH EVERY DAY 90 tablet 4 12/21/19 25 Active glipiZIDE (GLUCOTROL XL) 10 MG 24 hr tablet Take 2 tablets (20 mg total) by mouth daily as needed (daily as needed (10-20 mg)). Flexible dosing permitted (10-20 mg depending on blood sugars) 90 tablet 3 05/03/20 25 Active Additional Information Patient not taking.Reported on 11/01/2025 tirzepatide (MOUNJARO) 12.5 mg/0.5 mL PnIj subcutaneous pen Inject 0.5 mL (12.5 mg total) under the skin every 7 days. 6 mL 6 05/03/20 25 Active metFORMIN (GLUCOPHAGE-XR) 500 MG 24 hr tablet Take 1 tablet (500 mg total) by mouth 2 (two) times a day. Titrate to get to the dose: begin with 1 tablet once a day for one week, if tolerated increase to two tablets a day (either as one tablet twice a day or both at the same time). 180 tablet 4 09/28/20 Active Additional Information Patient taking differently:500 mg OralAs needed, Titrate to get to the dose: begin with 1 tablet once a day for one week, if tolerated increase to two tablets a day (either as one tablet twice a day or both at the same time)., Reported on 10/10/2025 tirzepatide (MOUNJARO) 10 mg/0.5 mL PnIj subcutaneous penIndications: Type 2 diabetes mellitus with hyperglycemia, without long-term current use of insulin Inject 0.5 mL (10 mg total) under the skin every 7 days. 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 Crohn's disease of colon with complication 10/22 Encounters Date Type Department Care Team Description 11/01/2025 12:00 PM EST Office Visit [facility] [address] [place] [address] Richa East MD, PhD Arthritis associated with inflammatory bowel disease (Primary Dx); Need for influenza vaccination 10/10/2025 2:45 PM EST Office Visit [facility] 10 [place] [address] Unknown, Unknown, Reza Kelly MD Crohn's disease of both small and large intestine without complication (Primary Dx) 10/09/2025 3:45 PM EST Office Visit [facility] [address] [place] [address] Reilly Sweeney MD Tear of medial meniscus of left knee, current, unspecified tear type, initial encounter (Primary Dx) 09/28/2025 2:40 PM EST Office Visit [facility] [address] [place] [address] Kristin Hernández MD Type 2 diabetes mellitus with hyperglycemia, without long-term current use of insulin (Primary Dx) from Last 3 Months Immunizations Immunization Administration Dates Next Due INFLUENZA, SPLIT VIRUS, TRIVALENT PF 11/01/2025 Family History Medical History Relation Comments Heart attack Paternal Grandfather Relation Status Comments Paternal Grandfather Social History Tobacco Use Types Packs/Day Years Used Date Smoking Tobacco: Never Smokeless Tobacco: Never Tobacco Cessation:Counseling Given: Not Answered Alcohol Use Standard Drinks/Week Comments No 0 (1 standard drink = 0.6 oz pur e alcohol) Education Answer Date Recorded Are you interested in more education? Not on wally e 03/13/2023 Are you concerned about learning? Not on file 03/13/2023 No 03/13/2023 No 03/13/2023 Digital Access Answer Date Recorded No 04/12/2023 No 04/12/2023 Reliable internet access at home? Not on file 04/12/2023 Device with a working camera? Not on file Sex and Gender Information Value Date Recorded Sex Assigned at Male 10/22/2021 6:08 PM EST Legal Sex Male 1:08 PM EST Gender Identity Male 10/22/2021 6:08 PM EST Sexual Orientation Straight 10/22/2021 6: 08 PM EST Last Filed Vital Signs Vital Sign Reading Time Taken Comments Blood Pressure 129/65 11/01/2025 11:56 AM EST Pulse 73 11/01/2025 11:56 AM EST Temperature 36.3 C (97.4 F) 11/01/2025 11:56 AM EST Respiratory Rate 18 07/30/2018 1:33 PM EDT Oxygen Saturation 99% 11/01/2025 11: 56 AM EST Inhaled Oxygen Concentration - - Weight 80.7 kg (177 lb 14.4 oz) 025 11:56 AM EST Height 167.6 cm (5' 6 ) 10/10/2025 2:56 PM EST Body Mass Index 28.71 10/10/2025 2:56 PM EST Plan of Treatment Upcoming Encounters Date Type Department Care Team (Late st Contact Info) Description 12/28/2025 2:40 PM EST Office [facility] [address] [place] [address] Kristin Hernández MD [address] [place] [address] [email or web address] 02/23/2026 Procedure Pass [facility] Endoscopy Admitting Dept Virtual Department [address] [place] [address] 02/23/2026 10:00 AM EDT Hospital Encounter [facility] Endoscopy Admitting Dept Virtual Department [address] [place] [address] Reza Ye MD [address] [address] 02/23/2026 10:00 AM EDT - 02/23/2026 10:30 AM EDT Surgery [facility] Endoscopy Admitting Dept Virtual Department [address] [place] [address] Reza Ye MD [address] [address] [email or web address] COLONOSCOPY 10/31/2026 11:20 AM EST Office [facility] [address] [place] [address] Richa East MD, PhD [address] [place] [address] Arthritis & Rheumatic Diseases [facility], [place] [address] [email or web address] Scheduled Procedures Name Priority Associated Diagnoses Date/Ti me COLONOSCOPY Crohn's disease of both small and large intestine without complication 02/23/2026 10:00 AM EDT Health Maintenance Due Date Last Done Comments HIV ONE-TIME SCREENING (18-65 YEARS) 1986 COLOGUARD 2013 FIT TEST 2013 FOBT 2013 SIGMOIDOSCOPY 2013 VIRTUAL COLONOSCOPY 2013 ZOSTER VACCINES (1 of 2) 2018 DIABETIC EYE EXAM 07/24/2020 DEPRESSION SCREENING 07/25/2021 07/25/2020 PNEUMOCOCCAL VACCINES (50+ years) (3 of 3 - PCV20 or PCV21) 06/02/2024 06/02/2019, 10/23/2016 COVID-19 VACCINE (4 - 2024- season) 2025 09/30/2021, 02/15/2021, 01/16/2021 URINE MICROALBUMIN/CREATININE RATIO 11/02/2025 11/02/2024, 08/19/2023, 08/19/2022, Additional history exists HEMOGLOBIN A1C 12/29/2025 09/28/2025, 04/16, 12/09/2024, Additional history exists COLONOSCOPY 02/18/2026 05/21/2023, 07/30/2018 COLORECTAL CANCER SCREENING 02/18/2026 BLOOD PRESSURE 05/02/2026 11/01/2025 CREATININE LEVEL 10/10/2026 10/10/2025, , 11/02/2024, Additional history exists Adult Td,Tdap Booster 07/18/2035 07/18/2025 RSV VACCINE (1 - 1-dose 75+ series) 2043 HEPATITIS C SCREENING Completed 06/03/2019 , 06/03/2019, 06/03/2019 SMOKING STATUS SCREENING (Once After 26 Yrs) Completed 10/10/2025 INFLUENZA VACCINE Completed 11/01/2025, , 09/07/2023, Additional history exists HEPATITIS A VACCINES Aged Out No long er eligible based on patient's age to complete this topic HIB VACCINES Aged Out No longer eligi ble based on patient's age to complete this topic MENINGOCOCCAL VACCINES (ACWY) Aged Out No longer eligible based on patient's age to complete this topic MENINGOCOCCAL VACCINES (B) Aged Out N o longer eligible based on patient's age to complete this topic Medical Devices Not on file Procedures Procedure Name Priority Date/Time Associated Diagnosis Comments CBC AND DIFFERENTIAL Routine 10/10/2025 3:36 PM EST Type 2 diabetes mellitus with hyperglycemia, without long-term current use of insulin COMPREHENSIVE METABOLIC PANEL (CMP) Routine 10/10/2025 3:36 PM EST Type 2 diabetes mellitus with hyperglycemia, without long-term current use of insulin CBC AND DIFFERENTIAL Routine 10/10/2025 3:36 PM EST Type 2 diabetes mellitus with hyperglycemia, without long-term current use of insulin IRON AND IRON BINDING CAPACITY Routine 10/10/2025 3:36 PM EST Crohn's disease of both small and large intestine without complication FERRITIN Routine 10/10/2025 3:36 PM EST Crohn's disease of both small and large intestine without complication VITAMIN B12 Routine 10/10/2025 3:36 PM EST Crohn's disease of both small and large intestine without complication POCT GLUCOSE Routine 09/28/2025 2:05 PM EST POCT HEMOGLOBIN A1C Routine 09/28/2025 2 :03 PM EST MICROALBUMIN/CREATINI NE RATIO, RANDOM URINE Routine 11/02/2024 9:49 AM EST Type 2 diabetes mellitus with hyperglycemia, without long-term current use of insulin HM COLONOSCOPY FOR RESULT ENTRY ONLY Routine 05/21/2023 HEPATITIS C ANTIBODY, QUALITATIVE Routine 06/03/2019 9:49 AM EDT Arthritis associated with inflammatory bowel disease from Last 3 Months or Most Recently Relevant to Health Maintenance Results * (ABNORMAL) Comprehensive Metabolic Panel (CMP) (10/10/2025 3:36 PM EST) Pathologist [facility] Sodium 140 136 - 145 mmol/L 10/10/2025 6:53 PM [facility] Potassium 4.3 3.4 - 5.1 mmol/L 10/10/2025 6:53 PM [facility] Chloride 105 98 - 107 mmol/L 10/10/2025 6:53 PM [facility] CO2 22 20 - 31 mmol/L 10/10/2025 6:53 PM [facility] Anion Gap 13 3 - 17 mmol/L 10/10/2025 6:53 PM [facility] BUN 20 6 - 23 mg/dL 10/10/2025 6:53 PM [facility] Creatinine 0.70 0.60 - 1.30 mg/dL 10/10/2025 6:53 PM [facility] eGFR 107 >59 mL/min/1.7 3m2 10/10/2025 6:53 PM [facility] Comment:Estimated glomerular filtration rate calculated using the CKD-EPI refit equation. Glucose 123(H) 70 - 99 mg/dL 10/10/2025 6:53 PM [facility] Calcium 9.7 8.5 - 10.5 mg/dL 10/10/2025 6:53 PM [facility] AST 26 <40 U/L 10/10/2025 6:53 PM [facility] ALT 26 <50 U/L 10/10/2025 6:53 PM [facility] Alkaline Phosphatase 105 40 - 130 U/L 10/10/2025 6:53 PM [facility] Bilirubin, Total 0.2 0.0 - 1.2 mg/dL 10/10/2025 6:53 PM [facility] Total Protein 8.0 6.4 - 8.3 g/dL 10/10/2025 6:53 PM [facility] Albumin 4.7 3.5 - 5.2 g/dL 10/10/2025 6:53 PM [facility] Globulin 3.3 1.9 - 4.1 g/dL 10/10/2025 6:53 PM [facility] Blood (Blood) Venipuncture / Unknown 10/10/2025 3:36 PM EST 10/10/2025 3:36 PM EST us Kristin Hernández MD LAB BLOOD BKR ORDERABLES Final R esult [facility] [address] [place], [place] [id number] * CBC and Differential (10/10/2025 3:36 PM EST) WBC 9.40 4.00 - 11.00 K/uL 10/10/2025 6:23 PM [facility] RBC 5.20 4.50 - 5.90 M/uL 10/10/2025 6:23 PM [facility] Hemoglobin 15.3 13.5 - 17.5 g/dL 10/10/2025 6:23 PM [facility] Hematocrit 46.6 41.0 - 53.0 % 10/10/2025 6:23 PM [facility] MCV 89.6 80.0 - 100.0 fL 10/10/2025 6:23 PM [facility] MCH 29.4 27.0 - 31.0 pg 10/10/2025 6:23 PM [facility] MCHC 32.8 32.0 - 36.0 g/dL 10/10/2025 6:23 PM [facility] MPV 10.0 8.4 - 12.0 fL 10/10/2025 6:23 PM [facility] RDW-CV 12.1 11.5 - 14.5 % 10/10/2025 6:23 PM [facility] PLT 216 150 - 450 K/uL 10/10/2025 6:23 PM [facility] Neutrophils 59.1 % 10/10/2025 6:23 PM [facility] Lymphocytes 29.5 % 10/10/2025 6:23 PM [facility] Monocytes 8.6 % 10/10/2025 6:23 PM [facility] Eosinophils 2.1 % 10/10/2025 6:23 PM [facility] Basophils 0.6 % 10/10/2025 6:23 PM [facility] Imm Grans 0.1 % 10/10/2025 6:23 PM [facility] NRBC 0.0 <=0.0 /100 WBCs 10/10/2025 6:23 PM [facility] Absolute Neutrophils 5.55 1.92 - 7.60 K/uL 10/10/2025 6:23 PM [facility] Absolute Lymphocytes 2.77 0.72 - 4.10 K/uL 10/10/2025 6:23 PM [facility] Absolute Monocytes 0.81 0.16 - 1.10 K/uL 10/10/2025 6:23 PM [facility] Absolute Eosinophils 0.20 0.00 - 0.50 K/uL 10/10/2025 6:23 PM [facility] Absolute Basophils 0.06 0.00 - 0.15 K/uL 10/10/2025 6:23 PM [facility] Absolute Imm Grans 0.01 0.00 - 0.09 K/uL 10/10/2025 6:23 PM [facility] Absolute NRBC 0.00 <=0.00 K cells/uL 10/10/2025 6:23 PM [facility] Absolute Neutrophils 5.55 1.92 - 7.60 K/uL 10/10/2025 6:23 PM [facility] Comment:Automated cell count . Manual ANC may differ if performed. Diff Type Auto 10/10/2025 6:23 PM [facility] Blood (Blood) Venipuncture / Unknown 10/10/2025 3:36 PM EST 10/10/2025 3:36 PM EST us Kristin Hernández MD LAB BLOOD BKR ORDERABLES Final R esult [address] [address] * Iron and Total Iron Binding Capacity (Iron/TIBC) (10/10/2025 3:36 PM EST) [facility] Iron 88 45 - 182 ug/dL 10/10/2025 6:53 PM [facility] Total Iron-Binding Capacity (TIBC) 323 220 - 460 ug/dL 10/10/2025 6:53 PM [facility] Transferrin Saturation 27 14 - 50 % 10/10/2025 6:53 PM [facility] Blood (Blood) Venipuncture / Unknown 10/10/2025 3:36 PM EST 10/10/2025 3:36 PM EST us Reza Ye MD LAB BLOOD BKR ORDERABLES Fin al Result [address] [address] * Ferritin (10/10/2025 3:36 PM EST) Ferritin 246 30 - 400 ug/L 10/10/2025 6:53 PM EST [facility] Blood (Blood) Venipuncture / Unknown 10/10/2025 3:36 PM EST 10/10/2025 3:36 PM EST us Reza Ye MD LAB BLOOD BKR ORDERABLES Fin al Result [address] [address] * Vitamin B12 (10/10/2025 3:36 PM EST) Vitamin B12 664 232 - 1,245 pg/mL 10/10/2025 6:55 PM EST [facility] Blood (Blood) Venipuncture / Unknown 10/10/2025 3:36 PM EST 10/10/2025 3:36 PM EST us Reza Ye MD LAB BLOOD BKR ORDERABLES Fin al Result Performing Organization Address [facility]/ZIP Co de Phone Number [address] [address] * (ABNORMAL) POCT Glucose (09/28/2025 2:05 PM EST) Glucose 241(H) 70 - 99 mg/dL 09/28/2025 2:10 PM EST [facility] Blood (Blood) 09/28/2025 2:0 5 PM EST 09/28/2025 2:10 PM EST us Kristin Hernández MD LAB POCT DOCKED DEVICE UNSOLICTE D RESULTS Final Result [address] [address] * (ABNORMAL) POCT Hemoglobin A1c (09/28/2025 2:03 PM EST) Hemoglobin A1C 8.7(H) 4.3 - 5.6 % 09/28/2025 2:18 PM EST [facility] Comment:HbA1c levels 5.7-6.4 % represent pre-diabetes, indicating impaired glucose control and an increased risk of developing diabetes. The diagnostic HbA1c level for diabetes is 6.5% or greater. HbA1c levels <4.2% may indicate a hemoglobinopathy or anemia, and an alternative method is recommended to monitor glucose control. Blood (Blood) 09/28/2025 2:0 3 PM EST 09/28/2025 2:18 PM EST us Kristin Hernández MD LAB POCT DOCKED DEVICE UNSOLICTE D RESULTS Final Result Performing Organization Address City/[facility] [place] [address] * (ABNORMAL) Microalbumin/creatinine ratio, random urine (11/02/2024 9:49 AM EST) Pathologist [facility] UR CREATININE 97.8 mg/dL [facility] Comment: No reference values apply. Interpret with other clinical data. MALB/CRE 29.7 0.0 - 30.0 mg/Alb/g Cre [facility] URINE MICROALBUMIN 2.9(H) 0.0 - 2.0 mg/dL [facility] Urine (Urine) 11/02/2024 9:4 9 AM EST 11/02/2024 10:25 AM EST us Kristin Hernández MD LAB URINE ORDERABLES Final Resul t Performing Organization Address City/[facility]/ZIP Co de Phone Number [facility] [address] [place] [address] * COLONOSCOPY FOR RESULT ENTRY ONLY (05/21/2023) Pathologist [facility] HM Colonoscopy External Bigg García MD HEALTH MAINTENANCE Final Result * Hepatitis C antibody, qualitative (06/03/2019 9:49 AM EDT) HCV Nonreactive Nonreactive [facility] Blood 06/03/2019 9:49 AM EDT 06/03/2019 9:57 AM EDT Richa East MD, PhD LAB BLOOD BKR ORDERABLES Final Result Performing Organization Address City/State/[facility] de Phone Number [facility] [address] [place] [phone] from Last 3 Months or Most Recently Relevant to Health Maintenance Insurance O POS EPO O POS EPO AETNA HMO POS EPO AETNA O POS EPO AETNA O POS EPO AETNA HMO POS EPO WORK[employer] COMPENSATION Member Subscriber Plan / Payer (Ef fective 2017-Present) Name:Arthur Fisher III Relation to Subscriber:Self Name:Arthur Fisher III Payer ID:Not on file Group ID:Not on file Type:Indemnity Address: [address] [place], [place] [id number] [place] [id number] Care Teams Baker Chef Relationship Specialty Start Date End Date Ankit Rose MD [address] [place] [address] PCP - General Internal Medicine 10/13/16 Reza Ye MD [address] [place] [address] [email or web address] Gastroenterology 11/11/19 Additional Source Comments The information contained in this document represents components of the legal health record. It is not the complete legal health record.[facility]
--- OUTSIDE RECORDS SUMMARY | 2025-11-14 14:54 | XMS_ITS | Encounter Summary ---
Author Organization [facility] Address [address] [place] [address] Phone Care Team Providers Care Coin Machine Operator Name Role Phone Ankit Rose MD Primary Care Provider Reza Ye MD Unavailable [phone] Encounter Details Date Type Department Care Team (Latest Contact Info) Description 05/24/2018 Transcribe Orders [facility] Phleb Elisabeth [address] 2[address] [place] [address] Brigette Noble PA-C [address] [place] [address] [email or web address] Crohn's disease of colon with complication (Primary Dx) Social History Tobacco Use Types Packs/Day Years Used Date Smoking Tobacco: Never Smokeless Tobacco: Never Sex and Gender Information Value Date Recorded Sex Assigned at Male 10/22/2021 6:08 PM EST Legal Sex Male 1:08 PM EST Gender Identity Male 10/22/2021 6:08 PM EST Sexual Orientation Straight 10/22/2021 6: 08 PM EST documented as of this encounter Plan of Treatment Upcoming Encounters Date Type Department Care Team ( st Contact Info) Description 12/28/2025 2:40 PM EST Office Visit [facility] [address] [place] [address] Kristin Hernández MD [address] [place] [address] [email or web address] 02/23/2026 Procedure Pass [facility] Endoscopy Admitting Dept Virtual Department [address] [place] [address] 02/23/2026 10:00 AM EDT Hospital Encounter [facility] Endoscopy Admitting Dept Virtual Department [address] [place] [address] Reza Ye MD [address] [address] 02/23/2026 10:00 AM EDT - 02/23/2026 10:30 AM EDT Surgery [facility] Endoscopy Admitting Dept Virtual Department [address] [place] [address] Reza Ye MD [address] [place] [address] COLONOSCOPY 10/31/2026 11:20 AM EST Office Visit [facility] [address] [place] [address] Richa East MD, PhD [address] [place] [address] Arthritis & Rheumatic Diseases [facility], [place] [address] [email or web address] Scheduled Procedures Name Priority Associated Diagnoses Date/Ti me COLONOSCOPY Crohn's disease of both small and large intestine without complication 02/23/2026 10:00 AM EDT documented as of this encounter Results * (ABNORMAL) 25-OH vitamin D (05/24/2018 11:45 AM EDT) 25 OH VIT D (TOTAL) 29(L) 30 - 1,000 ng/mL [facility] Blood 05/24/2018 11:4 5 AM EDT 05/24/2018 11:52 AM EDT us Brigette JORDAN-Gallito LAB BLOOD BKR ORDERABLES Final Result [address] [address] * C-Reactive Protein (05/24/2018 11:45 AM EDT) C REACTIVE PROTEIN 2.9 0.0 - 4.0 mg/L [facility] Comment:New Reference Range and Measuring Units effective 03/31/18. Blood 05/24/2018 11:4 5 AM EDT 05/24/2018 11:52 AM EDT Brigette Noble PA-C LAB BLOOD BKR ORDERABLES Final Result Performing Organization Address City/[facility]/ZIP Co de Phone Number [address] [address] * (ABNORMAL) Comprehensive metabolic panel (05/24/2018 11:45 AM EDT) SODIUM 140 133 - 146 mmol/L [facility] POTASSIUM 5.0 3.3 - 5.1 mmol/L [facility] CHLORIDE 100 96 - 108 mmol/L [facility] CO2 27 21 - 35 mmol/L [facility] BUN 12 6 - 19 mg/dL [facility] CREATININE 0.80 0.5 - 1.5 mg/dL [facility] GLUCOSE 128(H) 70 - 99 mg/dL [facility] ALBUMIN 4.4 3.9 - 4.8 g/dL [facility] TOTAL PROTEIN 7.6 6.5 - 8.0 g/dL [facility] CALCIUM 9.5 8.4 - 10.3 mg/dL [facility] ALKALINE PHOSPHATASE 84 39 - 117 U/L [facility] TOTAL BILIRUBIN 0.3 0.0 - 1.2 mg/dL [facility] AST 28 0 - 37 U/L [facility] ALT 29 0 - 40 U/L [facility] GLOBULIN 3.2 1 - 4.8 g/dL [facility] EGFR 104 >59 mL/min/1.7 3m2 [facility] Comment:If patient is black, multiply result by 1.159. Estimated glomerular filtration rate calculated using the CKD-EPI equation. ANION GAP 18 10 - 20 mmol/L [facility] Blood 05/24/2018 11:4 5 AM EDT 05/24/2018 11:52 AM EDT Brigette Noble PA-C LAB BLOOD BKR ORDERABLES Final Result Performing Organization Address City/[facility]/ZIP Co de Phone Number [address] [address] * CBC (05/24/2018 11:45 AM EDT) WBC 8.54 3.40 - 11.20 K/uL [facility] RBC 4.91 4.50 - 5.50 M/uL [facility] HGB 14.7 13.0 - 17.0 g/dL [facility] HCT 44.7 40.0 - 51.0 % [facility] PLT 178 130 - 400 K/uL [facility] MCV 91.0 79.0 - 98.0 fL [facility] MCH 29.9 27.0 - 34.8 pg [facility] MCHC 32.9 31.5 - 36.0 g/dL [facility] RDW 12.3 10.8 - 14.6 % [facility] MPV 10.6 9.4 - 12.4 fl [facility] NRBC 0.00 /100 WBCs [facility] ABSOLUTE NRBC 0.00 K/uL [facility] Blood 05/24/2018 11:4 5 AM EDT 05/24/2018 11:52 AM EDT Brigette Noble PA-C LAB BLOOD BKR ORDERABLES Final Result [address] [address] documented in this encounter Visit Diagnoses Diagnosis Crohn's disease of colon with complication- Primary Crohn's disease of both small and large intestine without complication documented in this encounter Care Teams Coin Machine Operator Relationship Specialty Start Date End Date Bombardier, Ankit Peter, MD [address] [place] [address] [address] [place] [address] PCP - General Internal Medicine 10/13/16 Reza Ye MD [address] [place] [address] Gastroenterology 11/11/19 documented as of this encounter Additional Source Comments The information contained in this document represents components of the legal health record. It is not the complete legal health record.[facility]
--- OUTSIDE RECORDS SUMMARY | 2025-11-14 14:54 | XMS_ITS | Encounter Summary ---
Author Organization [facility] Address [address] [place] [address] Phone Care Team Providers Care Continuous Mining Machine Coal Miner Name Role Phone Ankit Rose MD Primary Care Provider Reza Ye MD Unavailable Encounter Details Date Type Department Care Team (Late st Contact Info) Description 10/29/2016 Procedure Pass [facility] Planning [facility] [address] [place] [address] Social History Tobacco Use Types Packs/Day Years [...] Description 12/28/2025 2:40 PM EST Office Visit [facility] [address] [place] [address] Kristin Hernández MD [address] [place] [address] [email or web address] 02/23/2026 Procedure Pass [facility] Endoscopy Admitting Dept Virtual Department [address] [place] [address] 02/23/2026 10:00 AM EDT Hospital Encounter [facility] Endoscopy Admitting Dept Virtual Department [address] [place] [address] Reza Ye MD [address] [address] 02/23/2026 10:00 AM EDT - 02/23/2026 10:30 AM EDT Surgery [facility] Endoscopy Admitting Dept Virtual Department [address] [place] [address] Reza Ye MD [address] [place] [address] COLONOSCOPY 10/31/2026 11:20 AM EST Office Visit [facility] [address] [place] [address] Richa East MD, PhD [address] [place] [address] Arthritis & Rheumatic Diseases [facility], [place] [address] [email or web address] Scheduled Procedures Name Priority Associated Diagnoses Date/Ti me COLONOSCOPY Crohn's disease of both small and large intestine without complication 02/23/2026 10:00 AM EDT documented as of this encounter Visit Diagnoses Not on filedocumented in this encounter Care Teams Continuous Mining Machine Coal Miner Relationship Specialty Start Date End Date Ankit Rose MD [address] [place] [address] [place] [address] PCP - General Internal Medicine 10/13/16 Reza Ye MD [address] [place] [address] Gastroenterology 11/11/19 documented as of this encounter Additional Source Comments The information contained in this document represents components of the legal health record. It is not the complete legal health record.[facility]
--- OUTSIDE RECORDS SUMMARY | 2025-11-14 14:54 | XMS_ITS ---
[facility] Name [facility] Unknown Encounters Encounter Type Encounter Reason Primary Diagnosis Location Date Emergency Crushing injury of unspecified thumb, initial encounter Crushing injury of unspecified thumb, initial encounter [facility] 07/18/2025 Care Team Organization Name Specialty Phone Email Start Date End Da arturo [facility] 07/18/2025 08/16/2025 [facility] TERE GARCIA [facility] 07/18/2025 Cait[facility] 07/18/2025
--- OUTSIDE RECORDS SUMMARY | 2025-11-14 14:55 | XMS_ITS | Encounter Summary ---
Author Organization [facility] Address [address] [place] [address] Phone Care Team Providers Care Platform Inspector Name Role Phone Ankit Rose MD Primary Care Provider Reza Ye MD Unavailable [phone] Encounter Details Date Type Department Care Team (Late st Contact Info) Description 04/05/2025 Procedure Pass [facility], [address] [address] Social History Tobacco Use Types Packs/Day Years [...] Description 12/28/2025 2:40 PM EST Office Visit [facility] [address] [place] [address] Kristin Hernández MD [address] [place] [address] [email or web address] 02/23/2026 Procedure Pass [facility] Endoscopy Admitting Dept Virtual Department [address] [place] [address] 02/23/2026 10:00 AM EDT Hospital Encounter [facility] Endoscopy Admitting Dept Virtual Department [address] [place] [address] Reza Ye MD [address] [place] [address] 02/23/2026 10:00 AM EDT - 02/23/2026 10:30 AM EDT Surgery [facility] Endoscopy Admitting Dept Virtual Department [address] [place] [address] Reza Ye MD [address] [place] [address] [email or web address] COLONOSCOPY 10/31/2026 11:20 AM EST Office Visit [facility] [address] [place] [address] Richa East MD, PhD [address] [place] [address] Arthritis & Rheumatic Diseases [facility], [place] [address] [email or web address] Scheduled Procedures Name Priority Associated Diagnoses Date/Ti me COLONOSCOPY Crohn's disease of both small and large intestine without complication 02/23/2026 10:00 AM EDT documented as of this encounter Visit Diagnoses Not on filedocumented in this encounter Additional Health Concerns Assessment Noted Time PHQ-2 Depression Total Score: 0 07/25/20 10:41 AM EDT documented as of this encounter Care Teams Platform Inspector Relationship Specialty Start Date End Date Ankit Rose MD [address] [place] [address] 308 [place] [address] PCP - General Internal Medicine 10/13/16 Reza Ye MD [address] [place] [address] [email or web address] Gastroenterology 11/11/19 documented as of this encounter Additional Source Comments The information contained in this document represents components of the legal health record. It is not the complete legal health record.[facility]
--- OUTSIDE RECORDS SUMMARY | 2025-11-14 14:55 | XMS_ITS | Patient Health Record ---
Author Organization Ankit Rose MD Address [address] [place], [place] [address] Care Team Providers Care Nitriles Lab Technician Name Role Phone Ankit Rose Primary Care Provider [phone] Allergies Allergen (clinical drug ingredient) Drug/Non Drug Allergy documented on EMR Reaction Allergy Type Onset Date Status penicillin G Penicillin G Potassium hives Drug Allergy Active metformin Metformin HCl diarrhea Drug Allergy Act yasir Results Component Value Reference Range Notes Complete Blood Count Auto Di ff (Not yet reviewed by provider) Interpretation: Performing Lab:[facility], [address] [place] [phone] Notes/Report: White Blood Count 9.7 4.8-10.8 X10*3/uL Red Blood Count 5.02 4.60-5.80 X10*6/uL Hemoglobin 14.8 14.0-18.0 g/dl Hematocrit 45.4 42.0-52.0 % Mean Corpuscular Volume 90.4 80.0-98.0 fL Mean Corpuscular Hemoglobin 29.5 27.0-33.0 pg Mean Corpuscular HGB Conc 32.6 31.0-36.0 g/dl Red Cell Distribution Width 12.9 11.0-16.0 % Platelet Count 224 160-400 X10*3/uL Mean Platelet Volume 10.4 9.4-12.4 fL Neutrophils Percent Auto 58.0 45-73 % Imm Gran Pct Auto 0.3 0.0-0.4 % Lymphocytes Percent Auto 32.3 20-40 % Monocytes Percent Auto 6.7 2-11 % Eosinophils Percent Auto 2.0 0-4 % Basophils Percent Auto 0.7 0-2 % NRBC Pct Auto 0.0 0.0-0.2 /100WBC Neutrophils Absolute Auto 5.6 2.0-8.3 x10*3/u L Imm Gran Abs Auto 0.03 0.00-0.03 X10*3/uL Lymphocytes Absolute Auto 3.1 1.2-4.9 X10*3/u L Monocytes Absolute Auto 0.7 0.1-1.2 X10*3/uL Eosinophils Absolute Auto 0.2 0.0-0.4 X10*3/u L Basophils Absolute Auto 0.1 0.0-0.2 X10*3/uL NRBC Abs Auto 0.000 0.0-0.012 X10*3/uL Comprehensive [place]. Panel Fa st Reviewed date:11/14/2025 12:42:51 PM Interpretation: Performing Lab:[facility], [address] [place] [phone] Notes/Report: Sodium 140 135-145 mmol/L Potassium 4.1 3.3-5.1 mmol/L Chloride 106 96-108 mmol/L Carbon Dioxide 26 22-29 mmol/L Anion Gap 12 12-20 Blood Urea Nitrogen 16 9-16 mg/dL Creatinine 0.91 0.5-1.4 mg/dL Estimated Glomerular Filt Rate > 60 Chronic Kidney Disease: Estimated GFR < 60 mL/min/1.73m2 Severe Kidney Disease: Estimated GFR < 15 mL/min/1.73m2 Glucose Fasting 144 60-99 mg/dL A fasting glucose of 126 mg/dl or greater on more than one occasion is considered diagnostic of diabetes. Calcium 9.3 8.4-10.2 mg/dL Bilirubin Total 0.4 0.0-1.0 mg/dL Aspartate Amino Transferase 41 5-37 U/L Alanine Aminotransferase 43 0-40 U/L Total Protein 7.5 6.5-8.0 g/dL Albumin Level 4.5 3.5-5.0 g/dL Alkaline Phosphatase 101 39-117 U/L Lipid Panel Reviewed date:11/14/2025 12:42:23 PM Interpretation: Performing Lab:[address] [phone] Notes/Report: Triglycerides 144 <150 mg/dL Desirable Triglyceride: less than 150 mg/dL Borderline High Triglyceride 150-199 mg/dL High Triglyceride: 200-499 mg/dL Very High Triglyceride: greater than or equal to 5OO mg/dL Cholesterol 165 <200 mg/dL Desirable Cholesterol: less than 200 mg/dL Borderline High Cholesterol: 200-239 mg/dL High Cholesterol: greater than 239 mg/dL LDL Cholesterol Calculated 94 <100 mg/dL Desirable LDL: less than 100 mg/dL Near Optimal/Above Optimal LDL: 110-129 mg/dL Borderline High LDL: 130-159 mg/dL High LDL: 160-189 mg/dL Very High LDL: greater than or equal to 190 mg/dL HDL Cholesterol 43 >40 mg/dL Desirable HDL: greater than 40 mg/dL Note: This HDL assay may give artificially low results in patients with liver disease. PSA,Total (Free>4and<10) Reviewed date:11/14/2025 12:44:34 PM Interpretation: Performing Lab:[address] [phone] Notes/Report: PSA,Total (Free>4and<10) 0.58 0.00-4.00 ng/mL A Free PSA was not performed: The percentage of Free PSA can be used to enhance the differentiation of prostate cancer from benign prostatic disease in subjects whose PSA levels are between 4.0 and 10.0 ng/mL. For subjects whose PSA levels are below 4.0 or above 10.0 ng/mL, the risk of prostate cancer is determined on the basis of the PSA alone. Therefore the % Free PSA is recommended only for those subjects whose PSA levels are between 4.0 and 10.0 ng/mL. PSA methodology: Francois Alinity i Chemiluminescent Microparticle Immunoassay (CMIA) Microalbumin, Random Reviewed date:11/14/2025 12:45:22 PM Interpretation: Performing Lab:[address] [phone] Notes/Report: Creatinine Urine 200.64 Microalbumin Urine 19.0 Microalbum/Creatinine Ratio Ur 9.4 <30 ug/mg cr Albumin/Creatinine Ratio Reference Ranges: Normal: < 30 ug/mg creatinine Microalbuminuria: 30 - 300 ug/mg creatinine Clinical Albuminuria: > 300 ug/mg creatinine Hemoglobin A1c Reviewed date:11/14/2025 12:45:12 PM Interpretation: Performing Lab:[address] [phone] Notes/Report: Hemoglobin A1c % 7.7 <6.0 % Hemoglobin A1C Reference Range Adults: 4.8 - 6.0 % Non diabetic: < 6.0 % Goal: < 7.0 % Additional Action Suggested: > 8.0 % Note: Hemoglobin A1c results are invalid for patients with abnormal amounts of HbF. Blood transfusions may impact the HbA1c concentration in the patient sample. Estimated Average Glucose 174 eAG = Estimated average glucose which is %A1C expressed as average glucose, using the formula of the N0I-Giwgbcx Average Glucose study (ADAG), Diabetes Care, Vol.31,#8, Jun. 2007 UA ClnCatch+Micro w/rflx Cul t Reviewed date:11/14/2025 12:53:35 PM Interpretation: Performing Lab:[address] [phone] Notes/Report: Urine, Clean Catch Color Urine Yellow Appearance Urine Clear PH 5.0 5.0-9.0 Glucose Urine UA Negative Negative mg/dL Urine Blood Negative Negative Specific Loraine - Urine >= 1.030 1.005-1.025 Urine Protein Negative Neg-Trace mg/dL Urine Ketones Negative Negative mg/dL Nitrite Urine Negative Negative Leukocyte Esterase Urine Negative Negative RBC Urine 0-2 0-2 /HPF WBC Urine 0-5 0-5 /HPF Squamous Epithelial Cell Urine 0-2 0-2 /HPF Bacteria Urine None Seen None Seen Hyaline Casts Urine 0-2 0-2 /LPF Reason For Referral No Information Medications Medication SIG (Take, Route, Frequency, Duration) [...] Vaccine Route Administration Date Status Comme nts zFluzone Quadrivalent IM Intramuscular 09/24/2015 Administ ered Fluarix Quadrivalent IM Intramuscular 10/23/2016 Administe red PPSV23 (Pnemovax) IM Intramuscular 10/23/2016 Administered Fluarix Quadrivalent IM Intramuscular 08/31/2017 Administe red Fluarix Quadrivalent IM Intramuscular 09/20/2018 Administe red Prevnar 13 IM Intramuscular 06/02/2019 Administered Fluarix Quadrivalent IM Intramuscular 09/20/2019 Administe red Fluarix Quadrivalent Unknown 08/30/2020 Administered Wa jeff's SARS-COV-2 Moderna Unknown 01/16/2021 Administered SARS-COV-2 Moderna Unknown 02/15/2021 Administered SARS-COV-2 Moderna Unknown 09/30/2021 Administered Fluarix Quadrivalent IM Intramuscular 09/15/2022 Administe red Fluarix Quadrivalent IM Intramuscular 09/07/2023 Administe red Fluarix Quadrivalent - 150 IM Intramuscular 10/18/2024 Administered Social History Tobacco Use: Social History Observation Description Date Details (start date - stop date) Never Smoker NA - NA Tobacco Use/Smoking Question Answer Notes Patient is a nonsmoker Additional Findings: Tobacco Non-User Cu rrent non-smoker, currently using no form of tobacco Alcohol Screen Question Answer Notes Did you have a drink containing alcohol in the p ast year? No Points 0 Interpretation Negative Problems Problem Type SNOMED Code ICD Code Onset Dates Problem Status W/U Status Risk Notes Problem Lymphocytosis (80799950) Lymphocytosis (D72.820) Active confirmed Problem 7944791 Arthritis (M19.90) Active confirmed Problem 91323965 Type 2 diabetes mellitus without complication (E11.9) Active confirmed Problem 26009803 Dysthymia (F34.1) Active confirmed Problem 1460491 Crohns disease o f large intestine without complication (K50.10) Active confirmed Problem 413768432 Pure hypercholesterolemia (E78.00) Active confirmed Encounters Encounter Location Date Provider Diagnosis Ankit Rose MD [address] [place] [address] [address] [place] [phone] 11/14/2025 Ankit Rose Blood tests for rout ine general physical examination Z00.00 ; Type 2 diabetes mellitus without complication E11.9 ; Pure hypercholesterolemia E78.00 and Lymphocytosis D72.820 Ankit Rose MD [address] [place] [address] Drive [address] [place] [phone] 04/27/2025 Ankit Rose Assessments Encounter Date Diagnosis (ICD Code) Assessment Notes Treatment Notes Treatment Clinical Notes Section Notes 11/14/2025 Blood tests for rout ine general physical examination (ICD-10 - Z00.00) 11/14/2025 Type 2 diabetes davina itus without complication (ICD-10 - E11.9) 11/14/2025 Pure hypercholesterolemia (ICD-10 - E78.00) 11/14/2025 Lymphocytosis (ICD-1 0 - D72.820) Plan Of Treatment Pending Test Test Name Order Date Electrocardiogram (EKG) 05/21/2018 Electrocardiogram (EKG) 06/02/2019 Electrocardiogram (EKG) 05/14/2017 Complete Blood Count Auto Diff 5 Complete Blood Count Auto Diff Comprehensive [place]. Panel Fast Lipid Panel 11/14/2025 PSA,Total (Free>4and<10) 11/14/2025 Microalbumin, Random 11/14/2025 Hemoglobin A1c 11/14/2025 UA ClnCatch+Micro w/rflx Cult 11/14/2025 Next Appt Details Provider Name:Ankit pendleton, 11/30/2025 08:30:00 AM, [address] [facility], [address] [facility], [place], [place], [phone], Insurance Providers Payer Name Payer Address Payer Phone Subscriber Number Group Number Insured Name Patient Relationship to Insured Coverage Start Date Coverage End Date [employer] [id number] [place] [phone] [id number] HUSSEIN SALMERON III Self - patient is the insured Medical (General) History Medical History History ICD Code diabetes best sugar 150 colonoscopy 12/17/15 - f/u 3 y rs (Dr. Ye), Colonoscopy 07/30/18 f/u 3 yrs( Dr Ye)03/03/23 colonoscopy repeat 3 years 2019 - HX Lyme Disease
--- OUTSIDE RECORDS SUMMARY | 2025-11-14 14:55 | XMS_ITS | Encounter Summary ---
Author Organization [facility] Address [address] [place] [address] [address] [place] [address] Phone Care Team Providers Care Tag Stringer Name Role Phone Ankit Rose MD Primary Care Provider Reza Ye MD Unavailable Encounter Details Date Type Department Care Team (Late st Contact Info) Description 10/22/2017 Procedure Pass [facility] [address] [place] [address] Social History Tobacco Use Types Packs/Day Years [...] Description 12/28/2025 2:40 PM EST Office Visit [facility] [address] [place] [address] Kristin Hernández MD [address] [place] [address] [email or web address] 02/23/2026 Procedure Pass [facility] Endoscopy Admitting Dept Virtual Department [address] [place] [address] 02/23/2026 10:00 AM EDT Hospital Encounter [facility] Endoscopy Admitting Dept Virtual Department [address] [place] [address] Reza Ye MD [address] [address] 02/23/2026 10:00 AM EDT - 02/23/2026 10:30 AM EDT Surgery [facility] Endoscopy Admitting Dept Virtual Department [address] [place] [address] Reza Ye MD [address] [place] [address] COLONOSCOPY 10/31/2026 11:20 AM EST Office Visit [facility] [address] [place] [address] Richa East MD, PhD [address] [place] [address] Arthritis & Rheumatic Diseases [facility], [place] [address] [email or web address] Scheduled Procedures Name Priority Associated Diagnoses Date/Ti me COLONOSCOPY Crohn's disease of both small and large intestine without complication 02/23/2026 10:00 AM EDT documented as of this encounter Visit Diagnoses Not on filedocumented in this encounter Care Teams Tag Stringer Relationship Specialty Start Date End Date Ankit Rose MD [address] [place] [address] PCP - General Internal Medicine 10/13/16 Reza Ye MD [address] [place] [address] Gastroenterology 11/11/19 documented as of this encounter Additional Source Comments The information contained in this document represents components of the legal health record. It is not the complete legal health record.[facility]
--- OUTSIDE RECORDS SUMMARY | 2025-11-14 14:55 | XMS_ITS | Encounter Summary ---
Author Organization [facility] Address [address] [place] [address] Phone Care Team Providers Care Environmental Programs Manager Name Role Phone Ankit Rose MD Primary Care Provider Reza Ye MD Unavailable [phone] Encounter Details Date Type Department Care Team (Latest Contact Info) Description 10/30/2017 Transcribe Orders [address] [address] Luiz Yo MD [address] [place] [address] [email or web address] Pre-procedure lab exam (Primary Dx) Social History Tobacco Use Types [...] 12/28/2025 2:40 PM EST Office Visit [facility] [address] [place] [address] Kristin Hernández MD [address] [place] [address] [email or web address] 02/23/2026 Procedure Pass [facility] Endoscopy Admitting Dept Virtual Department [address] [place] [address] 02/23/2026 10:00 AM EDT Hospital Encounter [facility] Endoscopy Admitting Dept Virtual Department [address] [place] [address] Reza Ye MD [address] [address] 02/23/2026 10:00 AM EDT - 02/23/2026 10:30 AM EDT Surgery [facility] Endoscopy Admitting Dept Virtual Department [address] [place] [address] Reza Ye MD [address] [place] [address] [email or web address] COLONOSCOPY 10/31/2026 11:20 AM EST Office Visit [facility] [address] [place] [address] Richa East MD, PhD [address] [place] [address] Arthritis & Rheumatic Diseases [facility], [place] [address] [email or web address] Scheduled Procedures Name Priority Associated Diagnoses Date/Ti pa COLONOSCOPY Crohn's disease of both small and large intestine without complication 02/23/2026 10:00 AM EDT documented as of this encounter Results * Creatinine/eGFR (11/02/2017 7:18 AM EST) CREATININE 0.77 0.50 - 1.20 mg/dL [facility] EGFR >59 >59 mL/min/1.7 3m2 [facility] Comment:If patient is black, multiply result by 1.21 11/02/2017 7:18 AM EST 11/02/2017 7:26 AM EST Luiz Yo MD LAB BLOOD BKR ORDERAB LES Final Result [facility] [address] [place] [address] documented in this encounter Visit Diagnoses Diagnosis Pre-procedure lab exam- Primary Pre-procedural laboratory examination Crohn's disease of both small and large intestine without complication documented in this encounter Care Teams Environmental Programs Manager Relationship Specialty Start Date End Date Ankit Rose MD [address] [place] [address] [address] [place] [address] PCP - General Internal Medicine 10/13/16 Reza Ye MD [address] [place] [address] [email or web address] Gastroenterology 11/11/19 documented as of this encounter Additional Source Comments The information contained in this document represents components of the legal health record. It is not the complete legal health record.[facility]
--- OUTSIDE RECORDS SUMMARY | 2025-11-14 14:55 | XMS_ITS | Encounter Summary ---
Author Organization [facility] Address [address] [place] [address] [address] [place] [address] Phone Care Team Providers Care Supervisor Cell Efficiency Name Role Phone Ankit Rose MD Primary Care Provider Reza Ye MD Unavailable [phone] Encounter Details Date Type Department Care Team (Late st Contact Info) Description 10/22/2017 Procedure Pass [facility] [address] [place] [address] Social History Tobacco Use Types Packs/Day Years [...] Description 12/28/2025 2:40 PM EST Office Visit [facility] [address] [place] [address] Kristin Hernández MD [address] [place] [address] [email or web address] 02/23/2026 Procedure Pass [facility] Endoscopy Admitting Dept Virtual Department [address] [place] [address] 02/23/2026 10:00 AM EDT Hospital Encounter [facility] Endoscopy Admitting Dept Virtual Department [address] [place] [address] Reza Ye MD [address] [address] 02/23/2026 10:00 AM EDT - 02/23/2026 10:30 AM EDT Surgery [facility] Endoscopy Admitting Dept Virtual Department [address] [place] [address] Reza eY MD [address] [place] [address] COLONOSCOPY 10/31/2026 11:20 AM EST Office Visit [facility] [address] [place] [address] Richa East MD, PhD [address] [place] [address] Arthritis & Rheumatic Diseases [facility], [place] [address] [email or web address] Scheduled Procedures Name Priority Associated Diagnoses Date/Ti me COLONOSCOPY Crohn's disease of both small and large intestine without complication 02/23/2026 10:00 AM EDT documented as of this encounter Visit Diagnoses Not on filedocumented in this encounter Care Teams Supervisor Cell Efficiency Relationship Specialty Start Date End Date Ankit Rose MD [address] [place] [address] PCP - General Internal Medicine 10/13/16 Reza Ye MD [address] [place] [address] Gastroenterology 11/11/19 documented as of this encounter Additional Source Comments The information contained in this document represents components of the legal health record. It is not the complete legal health record.[facility]
--- OUTSIDE RECORDS SUMMARY | 2025-11-14 14:55 | XMS_ITS | Encounter Summary ---
Author Organization [facility] Address [address] [place] [address] Phone Care Team Providers Care Skein Dyer Name Role Phone Ankit Rose MD Primary Care Provider Reza Ye MD Unavailable [phone] Encounter Details Date Type Department Care Team (Latest Contact Info) Description 01/20/2018 Transcribe Orders [facility] Phleb Elisabeth [address] [facility] 2nd Floor [place], [place] [id number] Reza Ye MD 10 [facility] [id number] [email or web address] Crohn's disease of small and large intestines with complication (Primary Dx) Social History Tobacco [...] Description 12/28/2025 2:40 PM EST Office Visit [facility] [address] [place] [address] Kristin Hernández MD [address] [place] [address] [email or web address] 02/23/2026 Procedure Pass [facility] Endoscopy Admitting Dept Virtual Department [address] [place] [address] 02/23/2026 10:00 AM EDT Hospital Encounter [facility] Endoscopy Admitting Dept Virtual Department [address] [place] [address] Reza Ye MD [address] [address] 02/23/2026 10:00 AM EDT - 02/23/2026 10:30 AM EDT Surgery [facility] Endoscopy Admitting Dept Virtual Department [address] [place] [address] Reza Ye MD [address] [place] [address] [email or web address] COLONOSCOPY 10/31/2026 11:20 AM EST Office Visit [facility] [address] [place] [address] Richa East MD, PhD [address] [place] [address] Arthritis & Rheumatic Diseases [facility], [place] [address] [email or web address] Scheduled Procedures Name Priority Associated Diagnoses Date/Ti me COLONOSCOPY Crohn's disease of both small and large intestine without complication 02/23/2026 10:00 AM EDT documented as of this encounter Results * (ABNORMAL) 25-OH vitamin D (01/20/2018 8:47 AM EST) 25 OH VIT D (TOTAL) 16(L) 30 - 1,000 ng/mL [facility] Blood 01/20/2018 8:47 AM EST 01/20/2018 8:51 AM EST us Reza Ye MD LAB BLOOD BKR ORDERABLES Fin al Result Performing Organization Address [facility]/ZIP Co de Phone Number [address] [address] * Vitamin B12 (01/20/2018 8:47 AM EST) VITAMIN B12 708 243 - 894 pg/mL [facility] Blood 01/20/2018 8:47 AM EST 01/20/2018 8:51 AM EST us Reza Ye MD LAB BLOOD BKR ORDERABLES Fin al Result Performing Organization Address [facility] Co de Phone Number [address] [address] * Ferritin (01/20/2018 8:47 AM EST) FERRITIN 169 30 - 400 ug/L [facility] Blood 01/20/2018 8:47 AM EST 01/20/2018 8:51 AM EST us Reza Ye MD LAB BLOOD BKR ORDERABLES Fin al Result Performing Organization Address [facility] Co de Phone Number [address] [address] * Iron and iron binding capacity (01/20/2018 8:47 AM EST) IRON 97 45 - 160 ug/dL [facility] IRON BINDING CAPACITY 271 228 - 428 ug/dL [facility] TRANSFERRIN SATURAT. 36 20 - 55 % [facility] Blood 01/20/2018 8:47 AM EST 01/20/2018 8:51 AM EST us Reza Ye MD LAB BLOOD BKR ORDERABLES Fin al Result Performing Organization Address [facility] Co de Phone Number [address] [address] * LFTs (hepatic panel) (01/20/2018 8:47 AM EST) ALKALINE PHOSPHATASE 107 39 - 117 U/L [facility] TOTAL BILIRUBIN 0.4 0.0 - 1.2 mg/dL [facility] DIRECT BILIRUBIN <0.2 0 - 0.3 mg/dL [facility] Bilirubin (Indirect) NOT CALCULATED 0 - 1.5 mg/dL [facility] AST 26 0 - 37 U/L [facility] ALT 38 0 - 40 U/L [facility] TOTAL PROTEIN 7.2 6.5 - 8.0 g/dL [facility] ALBUMIN 4.3 3.9 - 4.8 g/dL [facility] GLOBULIN 2.9 1 - 4.8 g/dL [facility] A/G Ratio 1.48 1.00 - 4.80 RATIO [facility] Blood 01/20/2018 8:47 AM EST 01/20/2018 8:51 AM EST us Reza Ye MD LAB BLOOD BKR ORDERABLES Fin al Result Performing Organization Address City/[facility]/ZIP Co de Phone Number [address] [address] * C-Reactive Protein (01/20/2018 8:47 AM EST) Pathologist [facility] C REACTIVE PROTEIN 0.3 0 - 0.5 mg/L [facility] Blood 01/20/2018 8:47 AM EST 01/20/2018 8:51 AM EST us Reza Ye MD LAB BLOOD BKR ORDERABLES Fin al Result [address] [address] * CBC (01/20/2018 8:47 AM EST) Pathologist [facility] WBC 8.15 3.40 - 11.20 K/uL [facility] RBC 4.71 4.50 - 5.50 M/uL [facility] HGB 14.4 13.0 - 17.0 g/dL [facility] HCT 42.2 40.0 - 51.0 % [facility] PLT 199 130 - 400 K/uL [facility] MCV 89.6 79.0 - 98.0 fL [facility] MCH 30.6 27.0 - 34.8 pg [facility] MCHC 34.1 31.5 - 36.0 g/dL [facility] RDW 12.0 10.8 - 14.6 % [facility] MPV 10.9 9.4 - 12.4 fl [facility] NRBC 0.00 /100 WBCs [facility] ABSOLUTE NRBC 0.00 K/uL [facility] Blood 01/20/2018 8:47 AM EST 01/20/2018 8:51 AM EST us Reza Ye MD LAB BLOOD BKR ORDERABLES Fin al Result Performing Organization Address City/State/[facility] Co de Phone Number [address] [address] documented in this encounter Visit Diagnoses Diagnosis Crohn's disease of small and large intestines with complication- Primary Crohn's disease of both small and large intestine without complication documented in this encounter Care Teams Skein Dyer Relationship Specialty Start Date End Date Ankit Rose MD [address] [place] [address] PCP - General Internal Medicine 10/13/16 Reza Ye MD [address] [place] [address] Gastroenterology 11/11/19 documented as of this encounter Additional Source Comments The information contained in this document represents components of the legal health record. It is not the complete legal health record.[facility]
== END 2025-11-14 07:16 | disposition home or self-care (01) ==
LOC: HO.LNP 07:15
PROVIDERS: Visit Provider Internal Medicine
DX: Z00.00 Encounter for general adult medical examination without abnormal findings (principal); Z12.5 Encounter for screening for malignant neoplasm of prostate; E11.9 Type 2 diabetes mellitus without complications; E78.00 Pure hypercholesterolemia, unspecified; D72.820 Lymphocytosis (symptomatic)
CPT/HCPCS: 80053; 80061; 81001; 82043; 82570; 83036; 84153; 85025